=== PATIENT | male | born 1965 | race Caucasian/White ===

== ENCOUNTER 2022-08-10 14:54 | Outpatient (REF) | payer MEDICARE, MEDICAID, SELFPAY ==
--- NOTE | ~2022-08-10 | CT_ITS ---
EXAMINATION: CT CHEST SCREENING CLINICAL INFORMATION: Current smoker. 47 pack year history. COMPARISON: None. TECHNIQUE: Multidetector volumetric CT imaging of the chest is performed without contrast using low dose technique. Additional 2D coronal and sagittal reformatted images and axial 3D maximum intensity projection (MIP) images are generated on the CT workstation. This CT examination was performed using dose optimization techniques as appropriate, variously including the following: *Automated exposure control *Adjustment of mA and/or kV according to patient size (this includes techniques or standardized protocols for targeted exams where dose is matched to indication/reason for exam; i.e. extremities or head) *Use of iterative reconstruction technique DLP: 95 mGy-cm FINDINGS: LUNGS: There is evidence of emphysema. There are innumerable bilateral calcified nodules predominantly in the upper lobes, largest cluster calcified left upper lobe nodules measuring 6 mm at the left lung apex. There are innumerable groundglass attenuation areas seen in both upper lobes. Largest groundglass attenuation area measures 2.5 x 3.5 cm in the right upper lobe axial image 108 series 5. No endobronchial or endotracheal lesion. MEDIASTINUM: Upper normal-size thoracic aorta. There may be a small esophageal hernia. The mediastinum is otherwise normal. CORONARY ARTERY CALCIFICATION: Mild to moderate PLEURA: There is no pleural effusion. No pleural mass or thickening. AXILLA: No lymphadenopathy. UPPER ABDOMEN: Diverticulosis of the colon. OSSEOUS STRUCTURES: Unremarkable. CT/CT lung screening IMPRESSION: Emphysema. Innumerable calcified pulmonary nodules and groundglass attenuation areas predominantly involving the lateral upper lobes. ASSESSMENT: Lung-RADS category 3: Probably Benign RECOMMENDATION: Six-month low-dose chest CT follow-up recommended.
== END 2022-08-10 14:55 | disposition home or self-care (01) ==
LOC: HO.CT 14:54
PROVIDERS: Visit Provider Physician Assistant Medical
DX: Z12.2 Encounter for screening for malignant neoplasm of respiratory organs (principal); F17.210 Nicotine dependence, cigarettes, uncomplicated
CPT/HCPCS: 71271; G0296

== ENCOUNTER → 2022-11-06 10:15 | Outpatient (BNVA) | payer OTHER, MEDICAID, SELFPAY | PROVIDERS: PCP Family Medicine; Visit Provider Internal Medicine Pulmonary Disease | DX: J44.9 Chronic obstructive pulmonary disease, unspecified (principal) | CPT/HCPCS: 99202 ==

== ENCOUNTER 2022-11-15 12:24 | Outpatient (REF) | payer OTHER, MEDICAID, SELFPAY ==
--- NOTE | 2022-11-15 15:12 | PFT_ITS ---
FLOWS: 1. FEV1 88% of predicted at 3.96 L. 2. FVC 85% of predicted at 5.04 L. 3. FEV1 to FVC ratio 0.79. 4. No bronchodilator response. LUNG VOLUMES: 1. Total lung capacity 86% of predicted at 7.13 L. 2. Residual volume 74% of predicted at 1.90 L. 3. Slow vital capacity 92% of predicted at 5.23 L. 4. Expiratory reserve volume 66% of predicted at 1.1 L. 5. Diffusion capacity is mildly decreased, diffusion capacity corrects to normal after adjustment for alveolar ventilation. IMPRESSION: No obstructive or restrictive ventilatory defect. No bronchodilator response. Decreased expiratory reserve volume suggests extrathoracic restriction likely secondary to abdominal obesity. Decreased diffusion capacity suggests emphysema. Doroteo Barragan MD AP/MODL / [id number]
== END 2022-11-15 12:25 | disposition home or self-care (01) ==
LOC: HO.RESP 12:24
PROVIDERS: Visit Provider Internal Medicine Pulmonary Disease
DX: J44.9 Chronic obstructive pulmonary disease, unspecified (principal)
CPT/HCPCS: 94060; 94727; 94729

== ENCOUNTER → 2023-02-01 10:02 | Outpatient (BNVA) | payer MEDICARE, MEDICAID, SELFPAY | PROVIDERS: PCP Family Medicine; Visit Provider Internal Medicine Pulmonary Disease | DX: J44.9 Chronic obstructive pulmonary disease, unspecified (principal); R06.09 Other forms of dyspnea | CPT/HCPCS: 99212 ==

== ENCOUNTER 2023-04-08 09:50 | Outpatient (REF) | payer OTHER, SELFPAY ==
--- NOTE | ~2023-04-08 | CT_ITS ---
EXAMINATION: CT CHEST SCREENING CLINICAL INFORMATION: Current smoker. 40 pack year history. Follow-up groundglass attenuation area in the right upper lobe measuring 2.5 x 3.5 cm COMPARISON: Previous chest CT July 2022 TECHNIQUE: Multidetector volumetric CT imaging of the chest is performed without contrast using low dose technique. Additional 2D coronal and sagittal reformatted images and axial 3D maximum intensity projection (MIP) images are generated on the CT workstation. This CT examination was performed using dose optimization techniques as appropriate, variously including the following: *Automated exposure control *Adjustment of mA and/or kV according to patient size (this includes techniques or standardized protocols for targeted exams where dose is matched to indication/reason for exam; i.e. extremities or head) *Use of iterative reconstruction technique DLP: 94 mGy-cm FINDINGS: LUNGS: There is evidence of emphysema. There are clustered calcified coronary nodules or dominant involving the bilateral upper lobes that appear unchanged. Largest measures 6 mm at the left lung apex axial image 117 series 5. There is diffuse scattered areas of increased groundglass attenuation seen in the bilateral upper lobes. This is this is similar to previous exam as well. Small stable calcified 3 mm right lower lobe nodule axial image 390 series 5. Borderline bronchiectasis in the left lower lobe. No endobronchial or endotracheal lesion. No new pulmonary nodule. MEDIASTINUM: The mediastinum is normal. CORONARY ARTERY CALCIFICATION: Moderate PLEURA: There is no pleural effusion. No pleural mass or thickening. AXILLA: No lymphadenopathy. UPPER ABDOMEN: Unremarkable OSSEOUS STRUCTURES: Unremarkable. CT/CT lung screen follow up IMPRESSION: Emphysema. No appreciable change to the multiple small calcified pulmonary nodules and groundglass attenuation areas, greatest involvement in the upper lobes. Moderate coronary artery calcification. ASSESSMENT: Lung-RADS category 2: Benign RECOMMENDATION: Annual low-dose chest CT follow-up recommended
--- NOTE | 2023-04-08 10:15 | CA_ITS ---
Transthoracic Echocardiogram Patient (Last, First, Middle): Julian Pathak J Gender: Male Date of : 1965 Age: 57 Procedure Date: 04/08/2023 Procedure Type: Transthoracic Echocardiogram Location: OP Height: 193.04 cm Weight: 127.01 kg BSA: 2.56 m2 Heart Rate: bpm BP: 128 / 80 mmHg Assistant Director Of Admissions: Referring MD: Doroteo Barragan MD Infantry Weapons Officer: Shayne Babb MD Symptoms: R06.09 - Other forms of dyspnea Study Quality: Fair ECG Rhythm: Sinus Conclusions: - 1. Normal LV systolic function with mild LVH with impaired relaxation filling pattern 2. Normal cardiac valvular Doppler 3. Normal RV systolic pressure 4. Mildly dilated ascending aorta at 3.8 cm 5. No gross pericardial effusion Findings Procedure Information Contrast agent, definity, is being given per protocol without apparent complications. Left Ventricle Normal left ventricular size and systolic function. There is mildly increased left ventricular wall thickness. The visually estimated ejection fraction is between 55-60%. Spectral Doppler is indicative of an impaired relaxation filling pattern. E/E prime ratio is between 8 and 15 consistent with indeterminate filling pressures. Right Ventricle Normal right ventricular cavity size. Atria The left atrium was not well visualized. Interatrial shunt cannot be excluded. The right atrium was not well visualized. Aortic Valve The aortic valve was not well visualized. There is no aortic valve stenosis. There is no aortic valve regurgitation. Mitral Valve Likely normal mitral valve structure and function. There is trace mitral valve regurgitation. There is no mitral valve stenosis. Pulmonic Valve The pulmonic valve was not well visualized. Tricuspid Valve Likely normal tricuspid valve structure and function. There is trace tricuspid valve regurgitation. The right ventricular systolic pressure is normal. The right ventricular systolic pressure is 14 mmHg. Normal right atrial pressure. There is no evidence of pulmonary hypertension. Great Vessels The pulmonary artery was not well visualized. There is mild dilatation of the ascending aorta measuring 3.80 cm. Venous The inferior vena cava is normal in size and collapses greater than 50% with inspiration. Pericardium/Pleural There is no evidence of pericardial effusion. Prior Study Comparison No prior study available for comparison. Measurements 2D Linear Measurements IVSd: 1.54 0.6-0.9/0.6-1.0 cm LVIDd: 4.57 3.9-5.3/4.2-5.9 cm LVIDd Index: 1.79 2.4-3.2/2.2-3.1 cm/m2 LVIDs: 2.85 2.0-3.6 cm LVPWd: 1.53 0.7-1.1 cm Ao Root: 3.70 2.1-3.5 cm LA Diam: 3.10 2.7-3.8/3.0-4.0 cm LAIDs Index: 1.21 1.5-2.3 cm/m2 LV Mass: 364.52 67-162/88-224 g LV Mass Index: 142.39 43-95/49-115 g/m2 LVOT Diam: 2.40 3.0+(-)1.3 cm 2D Systolic Function EF 4C: 58.90 >55% EF 2C: 60.70 >55% EF BiP: 57.60 >55% Mitral Valve MV Pk E: 0.56 MV PK A: 0.92 MV Decel Time: 216.00 E/A: 0.60 E'Lateral: 7.51 E'Medial: 4.13 E/E' Med: 13.50 E/E' Lat: 7.40 PHT: 63.00 MVA PHT: 3.49 Decel [place]: 2.58 Aortic Valve AoV Pk Thanh: 1.27 AoV Mn Thanh: 0.77 AoV VTI: 0.28 AoV Pk Grad: 6.00 Aov Mn Grad: 3.00 JOSE Cont.VTI: 4.44 LVOT LVOT Pk Thanh: 1.13 LVOT Mn Thanh: 0.75 LVOT VTI: 0.28 LVOT Pk Grad: 5.00 LVOT Mn Grad: 3.00 LVOT Diam: 2.40 LVOT Area: 4.52 Diastolic Function MV Pk E: 0.56 MV Pk A: 0.92 E/A: 0.60 E'Medial: 4.13 E/E' Med: 13.50 E' Laterial: 7.51 E/E' Lat: 7.40 Right Ventricle TAPSE (mm): 29.00 TVS' Thanh: 17.00 Tricuspid Valve TR Pk Thanh: 1.65 TR Pk Grad: 11.00 RA Press: 3.00 RVSP: 14.00 Great Vessels Aorta Ao Root-2D: 3.70 2.0-3.7 cm Ao Asc: 3.80 2.1-3.4 cm Pulmonary Valve PV Pk Thanh: 0.98 Peak PV Grad: 4.00 Updated in Other Vendor System with Status of Final Shayne Babb MD electronically signed on 04/09/2023 10:46:26 AM with status of Final
== END 2023-04-08 09:51 | disposition home or self-care (01) ==
LOC: HO.CT 09:50
PROVIDERS: Absent Provider Internal Medicine Pulmonary Disease; Visit Provider Physician Assistant Medical
DX: Z12.2 Encounter for screening for malignant neoplasm of respiratory organs (principal); F17.210 Nicotine dependence, cigarettes, uncomplicated; R06.09 Other forms of dyspnea
CPT/HCPCS: 71250; 93306; Q9957

== ENCOUNTER → 2023-04-08 10:15 | Outpatient (BNV) | payer OTHER, MEDICAID, SELFPAY | PROVIDERS: Absent Provider Internal Medicine Pulmonary Disease; Visit Provider Internal Medicine Cardiovascular Disease | DX: R06.09 Other forms of dyspnea (principal) | CPT/HCPCS: 93306 ==

== ENCOUNTER 2023-04-30 10:27 | Outpatient (REF) | payer OTHER, SELFPAY ==
[2023-04-30 12:07] LABS: Estimated Average Glucose 105 mg/dL; Hemoglobin A1c % 5.3 %
[2023-04-30 12:59] LABS: TSH reflex Free T4 2.21 uIU/mL (0.32-4.0)
[2023-04-30 13:11] LABS: Vitamin B12 368 pg/mL (200-900)
[2023-05-05 11:44] LABS: Testosterone, Free 11.4 pg/mL (35.0-155.0); Testosterone, Total 74 ng/dL (250-1100)
== END 2023-04-30 10:28 | disposition home or self-care (01) ==
LOC: HO.HHCL 10:27
PROVIDERS: Visit Provider Family Medicine
DX: B20 Human immunodeficiency virus [HIV] disease (principal); R20.2 Paresthesia of skin; R53.83 Other fatigue; G62.9 Polyneuropathy, unspecified; E66.9 Obesity, unspecified
CPT/HCPCS: 36415; 82607; 83036; 84402; 84403; 84443

== ENCOUNTER 2023-05-09 11:22 | Outpatient (REF) | payer OTHER, SELFPAY ==
[2023-05-10 05:08] LABS: Follicle Stimulating Hormone 3.4 mIU/mL (1.6-8.0)
== END 2023-05-09 11:23 | disposition home or self-care (01) ==
LOC: HO.HHCL 11:22
PROVIDERS: Visit Provider Registered Nurse
DX: E34.9 Endocrine disorder, unspecified (principal)
CPT/HCPCS: 36415; 83001; 83002

== ENCOUNTER 2023-05-17 09:50 | Outpatient (AMB) | payer OTHER, SELFPAY ==
--- NOTE | 2023-05-17 10:01 | A.OFFVIS_ITS ---
Intake Vital Signs 05/17/23 10:02 Height 6 ft 4 in Weight 284 lb 6.341 oz BMI 34.6 BP 110/67 Blood Pressure Location Rt brachial Position Sitting Pulse 73 Pulse Source Doppler Pulse Oximetry (%) 94 Oxygen Delivery Method Room Air Intake Visit Reasons: COPD Allergies No Known Allergies [No Known Allergies*] Allergy (Verified 05/17/23 10:06) HPI COPD HPI Details 57-year-old gentleman, active 22 pack-year smoker followed for emphysema in dyspnea on exertion. Patient has been using Anoro and Combivent with reasonable control of his symptoms except when climbing up stairs. After the last office visit he has completed her 2D echocardiogram that showed mild diastolic dysfunction. [facility] Medical History (Updated 02/01/23 @ 10:46 by Doroteo Barragan MD) Colon polyps COPD (chronic obstructive pulmonary disease) Depression Hepatitis C HIV (human immunodeficiency virus infection) Hyperlipidemia Hypertension, essential Methadone maintenance therapy patient Nicotine dependence, cigarettes, uncomplicated Peripheral edema Surgical History (Updated 08/10/22 @ 07:50 by Lizzette Penaloza PA-C) History of colonoscopy Social History (Updated 05/17/23 @ 10:07 by CARO Tellez) Patient Tobacco Use Status: Current everyday Tobacco user Tobacco use type: Cigarette Cigarette Packs Per Day: 1 Review of Systems Const Denies daytime sleepiness, Denies excessive sweating, Denies fatigue, Denies fever(s), Denies lethargy, Denies malaise, Denies night sweats, Denies snoring and Denies weight loss Eyes Denies blurry vision and Denies itchy eyes ENT Denies nasal congestion, Denies post nasal drip, Denies sinus pain, Denies sinus pressure and Denies other ( Thrush) Card Denies chest pain, Denies pedal edema, Denies dyspnea, Reports dyspnea on exertion, Denies orthopnea and Denies paroxysmal nocturnal dyspnea Resp Denies cough, Denies hemoptysis, Denies excessive phlegm production, Denies dyspnea, Reports dyspnea on exertion, Denies snoring and Denies wheezing GI Denies abdominal pain and Denies heartburn Musc Denies myalgias, Denies arthralgias and Denies joint swelling Skin/Breast Denies rash Neuro Denies memory loss and Denies seizure-like activity Psych Denies abnormal sleep pattern, Denies anxiety and Denies memory loss Endo Denies excessive sweating, Denies fatigue and Denies heat intolerance Juan Ramon/Lymph Denies easy bruising Aller/Immun Denies itchy eyes, Denies seasonal rhinorrhea and Denies wheezing Physical Exam Vital Signs: Last Vital Signs Pulse 73 05/17/23 10:02 BP 110/67 05/17/23 10:02 Pulse Ox 94 05/17/23 10:02 Oxygen Delivery Method Room Air 05/17/23 10:02 BMI result Body Mass Index 34.6 Const General: no acute distress and alert Nutritional Appearance: not obese Orientation/consciousness: Other orientation findings ( oriented) HEENT Head: Yes atraumatic Eyes General: appearance normal, both eyes and all related structures Sclerae: sclerae normal EOM: EOMs intact bilaterally Neck Neck: Yes supple Lymphatic: no lymphadenopathy noted Resp Effort & Inspection: normal respiratory effort and no use of accessory muscles Auscultation: clear to auscultation bilaterally Cardio Rate: regular rate Rhythm: regular rhythm Heart sounds: no gallops, no murmurs and no rubs Skin General skin exam: other ( warm) Extrem General: No clubbing, No cyanosis and No edema Assessment & Plan Assessment & Plan (1) COPD (chronic obstructive pulmonary disease): Code(s): J44.9 - Chronic obstructive pulmonary disease, unspecified Plan: Reasonably well controlled on Anoro and Combivent. Continue current regimen. (2) Dyspnea on exertion: Code(s): R06.09 - Other forms of dyspnea Plan: Appears to have combined pulmonary/cardiac etiology to his symptoms. Will obtain stress test to evaluate cardiac contribution. Orders: Orders CA dobutamine stress echo Today J44.9 - Chronic obstructive pulmonary disease, unspecified, R06.09 - Other forms of dyspnea Coding Level of Care Code Est Pt Level 4 (66008) Diagnoses COPD (chronic obstructive pulmonary disease) J44.9 Dyspnea on exertion R06.09
[2023-05-17 10:02] VITALS: BP 110/67; PULSE 73; O2SAT 94; BMI 34.6
== END 2023-05-17 10:20 | disposition home or self-care (01) ==
PROVIDERS: Visit Provider Internal Medicine Pulmonary Disease
DX: J44.9 Chronic obstructive pulmonary disease, unspecified (principal); R06.09 Other forms of dyspnea
CPT/HCPCS: 99214

== ENCOUNTER → 2023-05-17 09:50 | Outpatient (BNVA) | payer OTHER, SELFPAY | PROVIDERS: Visit Provider Internal Medicine Pulmonary Disease | DX: J43.8 Other emphysema (principal); R06.09 Other forms of dyspnea; B20 Human immunodeficiency virus [HIV] disease; F17.210 Nicotine dependence, cigarettes, uncomplicated; Z79.891 Long term (current) use of opiate analgesic | CPT/HCPCS: 99212 ==

== ENCOUNTER → 2023-06-13 09:41 | Outpatient (REF) | payer OTHER, SELFPAY ==
--- NOTE | 2023-06-13 09:53 | CA_ITS ---
Acquisition Time: 2023-06-13 10:42:12 Total Exercise Time: 00:15:00 Test Indications: Screening for CAD Medications: AMLODIPINE ANORO ELLIPTA GABAPENTIN ROSUVASTATIN Protocol: DOBUTAMINE Max HR: 162 BPM 100% of Pred: 162 BPM Max BP: 184/050 mmHG Max Work Load: 1.0 METS Pharnacological stress test with Dobutamine infusion to max of 30 mcg/kg/min, achieivng greater than 85% MPHR, with short atrial runs, no anginal symptoms, with normotensive response to infusion, with borderline ST changes. Echo images obtained by Pulsant at rest, at 20 mcg/kg/min and 30 mcg/kg/min, Definity contrast used. Test reviewed with Dr. Church. Referred By: Doroteo Barragan Overread By: Belinda Rene
== END ==
LOC: HO.CARD 09:41
PROVIDERS: Visit Provider Internal Medicine Pulmonary Disease
DX: R06.09 Other forms of dyspnea (principal); J44.9 Chronic obstructive pulmonary disease, unspecified
CPT/HCPCS: 93351; J0461; J1250; Q9957

== ENCOUNTER 2023-06-21 10:13 | Outpatient (AMB) | payer OTHER, SELFPAY ==
--- NOTE | 2023-06-21 10:18 | A.OFFVIS_ITS ---
Intake Vital Signs 06/21/23 10:19 Height 6 ft 4 in Weight 293 lb 3.437 oz BMI 35.7 BP 128/77 Blood Pressure Location Rt brachial Position Sitting Pulse 75 Pulse Source Doppler Pulse Oximetry (%) 95 Oxygen Delivery Method Room Air Intake Visit Reasons: COPD Allergies No Known Allergies [No Known Allergies*] Allergy (Verified 06/21/23 10:20) HPI COPD HPI Details 57-year-old gentleman, active 22 pack-ye ar smoker followed for emphysema in dyspnea on exertion. Patient has been using Anoro and Combivent with reasonable control of his symptoms except when climbing upstairs. After the last office visit he has completed his cardiac dobuamine stress test that showed no evidence of ischemia. He does continue to complain of lower extremity edema. [facility] Medical History (Updated 06/21/23 @ 10:54 by Doroteo Barragan MD) Methadone maintenance therapy patient Colon polyps Depression Peripheral edema COPD (chronic obstructive pulmonary disease) Hyperlipidemia Hypertension, essential Hepatitis C HIV (human immunodeficiency virus infection) Nicotine dependence, cigarettes, uncomplicated Surgical History (Updated 08/10/22 @ 07:50 by Lizzette Penaloza PA-C) History of colonoscopy Social History Patient Tobacco Use Status: Current everyday Tobacco user Tobacco use type: Cigarette Cigarette Packs Per Day: 1 Review of Systems Const Denies daytime sleepiness, Denies excessive sweating, Denies fatigue, Denies fever(s), Denies lethargy, Denies malaise, Denies night sweats, Denies snoring and Denies weight loss Eyes Denies blurry vision and Denies itchy eyes ENT Denies nasal congestion, Denies post nasal drip, Denies sinus pain, Denies sinus pressure and Denies other ( Thrush) Card Denies chest pain, Reports pedal edema, Denies dyspnea, Denies orthopnea and Denies paroxysmal nocturnal dyspnea Resp Denies cough, Denies hemoptysis, Denies excessive phlegm production, Denies dyspnea, Denies snoring and Denies wheezing GI Denies abdominal pain and Denies heartburn Musc Denies myalgias, Denies arthralgias and Denies joint swelling Skin/Breast Denies rash Neuro Denies memory loss and Denies seizure-like activity Psych Denies abnormal sleep pattern, Denies anxiety and Denies memory loss Endo Denies excessive sweating, Denies fatigue and Denies heat intolerance Juan Ramon/Lymph Denies easy bruising Aller/Immun Denies itchy eyes, Denies seasonal rhinorrhea and Denies wheezing Physical Exam Vital Signs: Last Vital Signs Pulse 75 06/21/23 10:19 BP 128/77 06/21/23 10:19 Pulse Ox 95 06/21/23 10:19 Oxygen Delivery Method Room Air 06/21/23 10:19 BMI result Body Mass Index 35.7 Const General: no acute distress and alert Nutritional Appearance: not obese Orientation/consciousness: Other orientation findings ( oriented) HEENT Head: Yes atraumatic Eyes General: appearance normal, both eyes and all related structures Sclerae: sclerae normal EOM: EOMs intact bilaterally Neck Neck: Yes supple Lymphatic: no lymphadenopathy noted Resp Effort & Inspection: normal respiratory effort and no use of accessory muscles Auscultation: clear to auscultation bilaterally Cardio Rate: regular rate Rhythm: regular rhythm Heart sounds: no gallops, no murmurs and no rubs Skin General skin exam: other ( warm) Extrem General: No clubbing, No cyanosis and Yes edema (1+ bilateral) Assessment & Plan Assessment & Plan (1) COPD (chronic obstructive pulmonary disease): Code(s): J44.9 - Chronic obstructive pulmonary disease, unspecified Plan: Control on current regimen of Anoro and Combivent. Continue current regimen. (2) Lower extremity edema: Code(s): R60.0 - Localized edema Plan: Results of 2D echo and dobutamine stress test reviewed and essentially normal. Lower extremity edema at this time appears to be related to use of amlodipine. Suggest switching to a different class of antihypertensive agents. Coding Level of Care Code Est Pt Level 4 (30839) Diagnoses COPD (chronic obstructive pulmonary disease) J44.9 Lower extremity edema R60.0
[2023-06-21 10:19] VITALS: BP 128/77; PULSE 75; O2SAT 95; BMI 35.7
== END 2023-06-21 10:40 | disposition home or self-care (01) ==
PROVIDERS: Visit Provider Internal Medicine Pulmonary Disease
DX: J44.9 Chronic obstructive pulmonary disease, unspecified (principal); R60.0 Localized edema
CPT/HCPCS: 99214

== ENCOUNTER → 2023-06-21 10:13 | Outpatient (BNVA) | payer OTHER, SELFPAY | PROVIDERS: Visit Provider Internal Medicine Pulmonary Disease | DX: J44.9 Chronic obstructive pulmonary disease, unspecified (principal); R60.0 Localized edema | CPT/HCPCS: 99212 ==

== ENCOUNTER 2023-09-30 10:26 | Outpatient (REF) | payer OTHER, SELFPAY ==
[2023-10-01 11:49] LABS: Absolute CD3 Count 894 cells/uL (840-3060); Absolute CD4 Count 408 cells/uL (490-1740); Absolute CD8 Count 448 cells/uL (180-1170); Absolute Lymphocytes 1669 cells/uL (850-3900); CD4 CD8 Ratio 0.91 (0.86-5.00); Percent CD3 Cells 54 % (57-85); Percent CD4 Cells 24 % (30-61); Percent CD8 Cells 27 % (12-42)
[2023-10-03 13:44] LABS: HIV RNA PCR Qn Copies NOT DETECTED copies/mL (NOT DETECTED); HIV RNA PCR Qn Log Copies NOT DETECTED (NOT DETECTED)
== END 2023-09-30 10:27 | disposition home or self-care (01) ==
LOC: HO.HHCL 10:26
PROVIDERS: Visit Provider Student in an Organized Health Care Education/Training Program
DX: B20 Human immunodeficiency virus [HIV] disease (principal)
CPT/HCPCS: 36415; 80053; 85025; 86359; 86360; 87536

== ENCOUNTER 2023-11-25 10:11 | Outpatient (REF) | payer MEDICARE, SELFPAY ==
[2023-11-25 11:59] LABS: Alanine Aminotransferase 20 U/L (0-40); Albumin Level 4.3 g/dL (3.5-5.0); Alkaline Phosphatase 89 U/L (39-117); Anion Gap 10 (12-20); Aspartate Amino Transferase 19 U/L (5-37); Bilirubin Total 0.4 mg/dL (0.0-1.0); Blood Urea Nitrogen 14 mg/dL (9-16); Calcium 9.5 mg/dL (8.4-10.2); Carbon Dioxide 29 mmol/L (22-29); Chloride 101 mmol/L (96-108); Estimated Glomerular Filt Rate > 60; Glucose Random 103 mg/dL (60-115); Potassium 3.1 mmol/L (3.3-5.1); Sodium 137 mmol/L (135-145)
[2023-11-25 12:47] LABS: B Type Natriuretic Peptide < 10 pg/mL (<100)
== END 2023-11-25 10:12 | disposition home or self-care (01) ==
LOC: HO.HHCL 10:11
PROVIDERS: Visit Provider General Practice
DX: M79.89 Other specified soft tissue disorders (principal)
CPT/HCPCS: 36415; 80053; 83880

== ENCOUNTER 2023-12-03 14:25 | Outpatient (REF) | payer MEDICARE, SELFPAY ==
--- NOTE | ~2023-12-03 | US_ITS ---
EXAMINATION: US SCROTUM CLINICAL INFORMATION: Left testicular swelling x6 months. COMPARISON: None available. TECHNIQUE: A sonogram of the scrotum was performed assessing connors-scale appearance and color Doppler flow. Spectral Doppler analysis of the arterial and venous flow were performed in the testes bilaterally. FINDINGS: RIGHT: Right testicle measures 5.5 x 2.3 x 3.6 cm, volume 24.2 mL. No focal testicular parenchymal lesions are visualized. Spectral Doppler analysis of the arterial and venous flow is normal in the right testis. Right epididymal head is normal in size. No right varicocele is seen. Right hydrocele with volume approximately 26 mL. Right epididymal Doppler flow is normal. LEFT: Left testicle measures 4.6 x 2.7 x 3.9 cm, volume 24.7 mL. No focal testicular parenchymal lesions are visualized. Spectral Doppler analysis of the arterial and venous flow is normal in the left testis. Left epididymal head is normal in size. No left varicocele is seen. Left hydrocele with volume approximately 104 mL. Left epididymal Doppler flow is normal. US/US scrotum IMPRESSION: Bilateral hydroceles, left greater than right.
== END 2023-12-03 14:26 | disposition home or self-care (01) ==
LOC: HO.US 14:25
PROVIDERS: PCP General Practice; Visit Provider General Practice
DX: N50.89 Other specified disorders of the male genital organs (principal)
CPT/HCPCS: 76870

== ENCOUNTER 2024-01-03 09:59 | Outpatient (AMB) | payer MEDICARE, SELFPAY ==
[2024-01-03 10:02] VITALS: BP 118/67; PULSE 71; O2SAT 94; BMI 35.7
--- NOTE | 2024-01-03 10:02 | MHC.OFFVIS ---
Intake Vital Signs 01/03/24 10:02 Height 6 ft 4 in Weight 293 lb BMI 35.7 BP 118/67 Blood Pressure Location Rt brachial Position Sitting Pulse 71 Pulse Source Doppler Pulse Oximetry (%) 94 Intake Visit Reasons: COPD Allergies No Known Allergies [No Known Allergies*] Allergy (Verified 01/03/24 10:07) HPI COPD HPI Details 58-year-old gentleman, active 22 pack-year smoker followed for emphysema in dyspnea on exertion. Patient has been using Anoro and Combivent with reasonable control of his symptoms except when climbing upstairs. His cardiac dobuamine stress test that showed no evidence of ischemia. He does continue to complain of worsening lower extremity edema despite switching off amlodipine. [facility] Medical History (Updated 06/21/23 @ 10:54 by Doroteo Barragan MD) Methadone maintenance therapy patient Colon polyps Depression Peripheral edema COPD (chronic obstructive pulmonary disease) Hyperlipidemia Hypertension, essential Hepatitis C HIV (human immunodeficiency virus infection) Nicotine dependence, cigarettes, uncomplicated Surgical History (Updated 08/10/22 @ 07:50 by Lizzette Penaloza PA-C) History of colonoscopy Social History Patient Tobacco Use Status: Current everyday Tobacco user Tobacco use type: Cigarette Cigarette Packs Per Day: 1 Review of Systems Const Denies daytime sleepiness, Denies excessive sweating, Denies fatigue, Denies fever(s), Denies lethargy, Denies malaise, Denies night sweats, Denies snoring and Denies weight loss Eyes Denies blurry vision and Denies itchy eyes ENT Denies nasal congestion, Denies post nasal drip, Denies sinus pain, Denies sinus pressure and Denies other ( Thrush) Card Denies chest pain, Reports pedal edema, Denies dyspnea, Reports dyspnea on exertion, Denies orthopnea and Denies paroxysmal nocturnal dyspnea Resp Denies cough, Denies hemoptysis, Denies excessive phlegm production, Denies dyspnea, Reports dyspnea on exertion, Denies snoring and Denies wheezing GI Denies abdominal pain and Denies heartburn Musc Denies myalgias, Denies arthralgias and Denies joint swelling Skin/Breast Denies rash Neuro Denies memory loss and Denies seizure-like activity Psych Denies abnormal sleep pattern, Denies anxiety and Denies memory loss Endo Denies excessive sweating, Denies fatigue and Denies heat intolerance Juan Ramon/Lymph Denies easy bruising Aller/Immun Denies itchy eyes, Denies seasonal rhinorrhea and Denies wheezing Physical Exam Vital Signs: Last Vital Signs Pulse 71 01/03/24 10:02 BP 118/67 01/03/24 10:02 Pulse Ox 94 01/03/24 10:02 BMI result Body Mass Index 35.7 Const General: no acute distress and alert Nutritional Appearance: not obese Orientation/consciousness: Other orientation findings ( oriented) HEENT Head: Yes atraumatic Eyes General: appearance normal, both eyes and all related structures Sclerae: sclerae normal EOM: EOMs intact bilaterally Neck Neck: Yes supple Lymphatic: no lymphadenopathy noted Resp Effort & Inspection: normal respiratory effort and no use of accessory muscles Auscultation: clear to auscultation bilaterally Cardio Rate: regular rate Rhythm: regular rhythm Heart sounds: no gallops, no murmurs and no rubs Skin General skin exam: other ( warm) Extrem General: No clubbing, No cyanosis and Yes edema (2+ to the knees) Assessment & Plan Assessment & Plan (1) COPD (chronic obstructive pulmonary disease): Code(s): J44.9 - Chronic obstructive pulmonary disease, unspecified (2) Lower extremity edema: Code(s): R60.0 - Localized edema (3) Dyspnea on exertion: Code(s): R06.09 - Other forms of dyspnea (4) Nicotine dependence, cigarettes, uncomplicated: Comment: (Current smoker, onset 18yo, 1ppd x 39yrs, 35pyh) Code(s): F17.210 - Nicotine dependence, cigarettes, uncomplicated Plan Pulmonary component of dyspnea well controlled on current regimen of Anoro and Combivent. Continue current regimen. Will continue with lung cancer screening, next in March of 2024. Worsening lower extremity edema, now up to knees with dyspnea on exertion despite switching from amlodipine. Will start on empiric Bumex and potassium supplementation. Medications: New potassium chloride 20 mEq PO DAILY 7 ea 0RF bumetanide 1 mg PO DAILY 30 days 30 tabs 6RF bumetanide 1 mg PO DAILY 30 days 7 tabs 0RF Coding Level of Care Code Est Pt Level 5 (17123) Diagnoses COPD (chronic obstructive pulmonary disease) J44.9 Lower extremity edema R60.0 Dyspnea on exertion R06.09 Nicotine dependence, cigarettes, uncomplicated F17.210
== END 2024-01-03 10:18 | disposition home or self-care (01) ==
PROVIDERS: PCP General Practice; Visit Provider Internal Medicine Pulmonary Disease
DX: J44.9 Chronic obstructive pulmonary disease, unspecified (principal); F17.210 Nicotine dependence, cigarettes, uncomplicated; R60.0 Localized edema
CPT/HCPCS: 99214

== ENCOUNTER → 2024-01-03 09:59 | Outpatient (BNVA) | payer MEDICARE, SELFPAY | PROVIDERS: PCP General Practice; Visit Provider Internal Medicine Pulmonary Disease | DX: J44.9 Chronic obstructive pulmonary disease, unspecified (principal); R60.0 Localized edema; R06.09 Other forms of dyspnea; F17.210 Nicotine dependence, cigarettes, uncomplicated | CPT/HCPCS: 99212 ==

== ENCOUNTER 2024-02-25 11:25 | Outpatient (REF) | payer MEDICARE, SELFPAY ==
[2024-02-25 13:23] LABS: MANUAL DIFF FLAG NO
[2024-02-25 13:35] LABS: Basophils Percent Auto 0.4 % (0-2); Eosinophils Absolute Auto 0.3 X10*3/uL (0.0-0.4); Eosinophils Percent Auto 3.5 % (0-4); Hematocrit 43.8 % (42.0-52.0); Hemoglobin 15.1 g/dl (14.0-18.0); Imm Gran Abs Auto 0.04 X10*3/uL (0.00-0.03); Imm Gran Pct Auto 0.6 % (0.0-0.4); Lymphocytes Absolute Auto 1.8 X10*3/uL (1.2-4.9); Mean Corpuscular HGB Conc 34.5 g/dl (31.0-36.0); Mean Corpuscular Hemoglobin 32.9 pg (27.0-33.0); Mean Corpuscular Volume 95.4 fL (80.0-98.0); Mean Platelet Volume 11.6 fL (9.4-12.4); Monocytes Absolute Auto 0.9 X10*3/uL (0.1-1.2); Monocytes Percent Auto 12.3 % (2-11); Neutrophils Absolute Auto 4.2 x10*3/uL (2.0-8.3); Neutrophils Percent Auto 58.2 % (45-73); Platelet Count 179 X10*3/uL (160-400); Red Blood Count 4.59 X10*6/uL (4.60-5.80); Red Cell Distribution Width 15.1 % (11.0-16.0); White Blood Count 7.2 X10*3/uL (4.8-10.8)
[2024-02-25 14:13] LABS: Alanine Aminotransferase 18 U/L (0-40); Alkaline Phosphatase 84 U/L (39-117); Anion Gap 14 (12-20); Aspartate Amino Transferase 23 U/L (5-37); Bilirubin Total 0.3 mg/dL (0.0-1.0); Blood Urea Nitrogen 12 mg/dL (9-16); Calcium 9.8 mg/dL (8.4-10.2); Carbon Dioxide 29 mmol/L (22-29); Chloride 100 mmol/L (96-108); Estimated Glomerular Filt Rate > 60; Glucose Random 81 mg/dL (60-115); Potassium 3.8 mmol/L (3.3-5.1); Sodium 139 mmol/L (135-145); Total Protein 7.8 g/dL (6.5-8.0)
[2024-02-26 12:34] LABS: Absolute CD4 Count 439 cells/uL (490-1740); Absolute CD8 Count 482 cells/uL (180-1170); Absolute Lymphocytes 1849 cells/uL (850-3900); CD4 CD8 Ratio 0.91 (0.86-5.00); Percent CD4 Cells 24 % (30-61); Percent CD8 Cells 26 % (12-42)
[2024-02-27 14:23] LABS: HIV RNA PCR Qn Copies NOT DETECTED copies/mL (NOT DETECTED); HIV RNA PCR Qn Log Copies NOT DETECTED (NOT DETECTED)
== END 2024-02-25 11:26 | disposition home or self-care (01) ==
LOC: HO.HHCL 11:25
PROVIDERS: Visit Provider General Practice
DX: B20 Human immunodeficiency virus [HIV] disease (principal)
CPT/HCPCS: 36415; 80053; 85025; 86360; 87536

== ENCOUNTER 2024-04-22 07:34 | Outpatient (REF) | payer MEDICARE, SELFPAY ==
--- NOTE | ~2024-04-22 | US_ITS ---
EXAMINATION: US COMPLETE ABDOMEN WITH LIVER ELASTOGRAPHY CLINICAL INFORMATION: Chronic hepatitis; abnormal liver function tests. COMPARISON: CT abdomen and pelvis dated 11/04/2015 TECHNIQUE: Real-time imaging of the abdominal viscera. Noninvasive ultrasound liver fibrosis assessment is performed using Myrna ElastPQ point quantification shear wave elastography (pSWE) with a C5-2 MHz transducer. Multiple elastography samples are obtained. Imaging is significantly limited by body habitus. FINDINGS: PANCREAS: Normal. The visualized pancreatic head and body are normal in appearance. The remainder of the pancreas is obscured from visualization by the overlying bowel gas. ABDOMINAL AORTA: The proximal, middle, and distal aortic segments are normal in caliber. INFERIOR VENA CAVA: Visualized portions are normal. LIVER: The liver is enlarged and shows normal contour and increased echogenicity. No focal lesion or intrahepatic biliary duct dilatation. The right lobe measures 20.7 cm in length. The left lobe measures 13.6 cm in length. Portal flow is towards the liver (hepatopetal). Shear wave liver elastography median stiffness is 1.43 m/s (reference: normal median stiffness is 1.3 m/s or less). IQR/median stiffness to assess sampling precision is 0.24 (reference: good quality data set is IQR/median stiffness of 0.15 or less). GALLBLADDER: There is layering biliary sludge. This gallbladder wall thickening to 5 mm up. Trace pericholecystic free fluid is suspected. COMMON BILE DUCT: Normal in caliber measuring 1.0 cm in diameter. RIGHT KIDNEY: Normal. No hydronephrosis. No renal calculi or focal parenchymal lesions. The kidney measures 12.4 cm in maximum dimension. LEFT KIDNEY: Normal. No hydronephrosis. No renal calculi or focal parenchymal lesions. The kidney measures 12.0 cm in maximum dimension. SPLEEN: Normal. The spleen measures 11.7 cm in maximum dimension. FREE FLUID: None. US/US abdomen comp w elastography IMPRESSION: 1. There is generalized increase in hepatic echotexture, consistent with fatty infiltration or hepatocellular disease. Please correlate clinically. No focal hepatic mass or intrahepatic biliary dilatation is seen. 2. There is hepatomegaly. 3. Liver elastography: Although measurements appear to rule out compensated advanced chronic liver disease, there is statistical variability of the sampling which decreases accuracy. 4. There is biliary sludge, gallbladder wall thickening, and trace pericholecystic free fluid is suspected. The findings are consistent with cholecystitis, possibly acute. There is currently clinically. 5. There is common bile duct enlargement to 1.0 cm, without focal choledocholithiasis seen. This could be more fully evaluated with abdominal MRI/MRCP or CT, if clinically indicated. REFERENCE: Society of Radiologists in Ultrasound Liver Stiffness Thresholds (2020): LIVER STIFFNESS THRESHOLDS: *Liver Stiffness equal or less than 1.3 m/s: High probability of being normal. *Liver Stiffness less than 1.7 m/s: In the absence of other known clinical signs, rules out compensated advanced chronic liver disease. *Liver Stiffness 1.7-2.1 m/s: Suggestive of compensated advanced chronic liver disease but need further test for confirmation. *Liver Stiffness over 2.1 m/s: Rules in compensated advanced chronic liver disease. *Liver Stiffness over 2.4 m/s: Suggestive of clinically significant portal hypertension. QUALITY OF DATA SET: *IQR/Median value equal or less than 0.15 implies a quality data set. *IQR/Median value over 0.15 implies a poor quality data set. SIGNIFICANT CHANGE FROM PRIOR EXAM: Significant change if liver stiffness measurement is 10% or greater from prior exam. OTHER CONSIDERATIONS: The stage of liver fibrosis may be overestimated in the setting of acute hepatitis, liver inflammation, elevated liver function tests, hepatic vascular congestion, obstructive cholestasis, non-fasting state, and infiltrative diseases such as amyloidosis and lymphoma. In some patients with NAFLD, the liver stiffness thresholds for compensated advanced chronic liver disease may be lower. In causes other than viral hepatitis and NAFLD, liver stiffness thresholds are not well established. Electronically signed by: Baldemar Nassar MD 05/18/2024 10:23 AM EDT
== END 2024-04-22 07:35 | disposition home or self-care (01) ==
LOC: HO.US 07:34
PROVIDERS: PCP General Practice; Visit Provider Student in an Organized Health Care Education/Training Program
DX: K73.9 Chronic hepatitis, unspecified (principal); R60.0 Localized edema; R79.89 Other specified abnormal findings of blood chemistry
CPT/HCPCS: 76700; 76981

== ENCOUNTER 2024-04-30 12:48 | Outpatient (RCR) | payer MEDICARE, SELFPAY | END 2024-05-20 10:36 | disposition home or self-care (01) | LOC: HO.WCC 12:48 | PROVIDERS: PCP General Practice; Visit Provider Surgery | DX: S91.312A Laceration without foreign body, left foot, initial encounter (principal); G62.9 Polyneuropathy, unspecified; I10 Essential (primary) hypertension; B20 Human immunodeficiency virus [HIV] disease; F17.210 Nicotine dependence, cigarettes, uncomplicated; X58.XXXA Exposure to other specified factors, initial encounter; Y93.9 Activity, unspecified; Y92.9 Unspecified place or not applicable; Y99.9 Unspecified external cause status; Z79.899 Other long term (current) drug therapy | CPT/HCPCS: 11042; 99212 ==

== ENCOUNTER 2024-05-04 08:47 | Outpatient (AMB) | payer MEDICARE, SELFPAY ==
--- NOTE | 2024-05-04 08:55 | MHC.OFFVIS ---
Intake Visit Reasons: hydrocele/ ED Intake Note: New Patient presents for initial visit for hydrocele and erectile dysfunction Urology Medications: none. previously treated with Viagra. Blood Thinner: none Special Events Assistant Required: No Accompanied by: Self / Same As Patient Allergies No Known Allergies [No Known Allergies*] Allergy (Verified 05/04/24 10:10) Medication List - Last Reconciled 05/04/24 by HARMAN Lacey- cfcauylti-doakdaid-fciqxbq ala 50-200-25 mg (Biktarvy) ea PO blood pressure test kit-large As directed bumetanide 1 mg PO DAILY 30 days chlorhexidine gluconate 0.12% mL PO gabapentin 100 mg PO ibuprofen 800 mg PO ipratropium-albuterol 20-100 mcg/actuation (Combivent Respimat) grams inhalation naloxone 4 mg/actuation ea intranasal rosuvastatin 20 mg PO umeclidinium-vilanterol 62.5-25 mcg/actuation (Anoro Ellipta) 1 ea PO DAILY HPI Comments Details: Julian is a 58-year-old male patient of Dr. White. He has a past medical history of depression, peripheral edema, COPD, hyperlipidemia, hypertension, hepatitis-C, HIV, and nicotine dependence. He presents to the office today as a new patient for large left hydrocele as well as erectile dysfunction. In discussion with the patient today he reports noting over the last 4 months that his left testicle was getting bigger than his right. He reports having followed up with his PCP at which time a scrotal ultrasound was ordered and performed. These results were reviewed with the patient today. Bilateral hydroceles left greater than right. In assessment of the patient today the penis is circumcised moderate to large left hydrocele noted otherwise no open areas, lesions, or drainage noted. Discussed at length potential causes of hydroceles as well as further treatment options to include surveillance monitoring verses in office drainage verses surgical intervention. Risks and benefits of these interventions were discussed. Patient also discusses longstanding history of erectile dysfunction over the last 3-5 years. He reports previously trialing Viagra p.r.n. and felt this was somewhat helpful and would like to continue. Discussed at length potential causes of erectile dysfunction. When asked he also reports urinary frequency however relates this to his diuretic medication. He otherwise denies incontinence, nocturia, hematuria, dysuria, foul smelling urine, changes to urinary stream, flank pain, fever, and or chills. In office urinalysis results reviewed with the patient today. He otherwise offers no other issues or concerns at this time. [facility] Medical History Methadone maintenance therapy patient Colon polyps Depression Peripheral edema COPD (chronic obstructive pulmonary disease) Hyperlipidemia Hypertension, essential Hepatitis C HIV (human immunodeficiency virus infection) Nicotine dependence, cigarettes, uncomplicated Surgical History History of colonoscopy Social History Patient Tobacco Use Status: Current everyday Tobacco user Tobacco use type: Cigarette Cigarette Packs Per Day: 1 Review of Systems Eyes Reports no additional complaints ENT Reports no additional complaints Card Reports as per HPI Resp Reports as per HPI GI Reports no additional complaints Reports as per HPI Musc Reports no additional complaints Neuro Reports as per HPI Psych Reports as per HPI Endo Reports no additional complaints Juan Ramon/Lymph Reports as per HPI Aller/Immun Reports no additional complaints Physical Exam Const General: cooperative, comfortable, no acute distress, well developed, alert and awake Orientation/consciousness: patient oriented x3 Limitations: no limitations HEENT Head: Yes normal to inspection, Yes normocephalic and Yes atraumatic Ears: hearing grossly normal bilaterally Eyes General: appearance normal, both eyes and all related structures Neck Neck: Yes normal visual inspection and Yes trachea midline Chest Chest palpation & inspection: normal inspection of the chest Resp Effort & Inspection: normal respiratory effort and able to speak in complete sentences Cardio Rate: regular rate GI Inspection: Yes normal to inspection General: Yes no CVA tenderness Back/Spine/Pelvis Back: no CVA tenderness Skin General skin exam: no rashes or lesions noted Neuro General: patient oriented x3 Extrem General: Yes normal to inspection Psych Appearance: grossly normal and well kempt Mental Status: mental status grossly normal Speech and movement: Normal speech and movement present and Clear speech present Affect: normal affect Attitude: cooperative Thought process: Normal thought process present Thought content: Normal thought content present Insight: Fair insight present (Psych) Judgement: Fair judgement present (Psych) Results AMB Urinalysis, Automated UA Leukoctes 0 Cady/uL Last Edit by Brynn Martínez on 05/04/24 09:22 UA Nitrite Last Edit by Brynn Martínez on 05/04/24 09:22 UA Urobilinogen 0.2 mg/dL Last Edit by Brynn Martínez on 05/04/24 09:22 UA Protein 15 mg/dL Last Edit by Brynn Martínez on 05/04/24 09:22 UA pH 6.0 Last Edit by Brynn Angelicabernabe on 05/04/24 09:22 UA Blood 0 Robe/uL Last Edit by Brynn Martínez on 05/04/24 09:22 UA Specific [place] 1.015 Last Edit by Brynn Martínez on 05/04/24 09:22 UA Ketone Last Edit by Brynn Martínez on 05/04/24 09:22 UA Bilirubin 0 mg/dL Last Edit by Brynn Martínez on 05/04/24 09:22 UA Glucose 0 mg/dL Last Edit by Brynn Martínez on 05/04/24 09:22 Results Reviewed Results Reviewed: Laboratory Last Values Urine pH (Auto) 6.0 05/04/24 09:21 Specific [place] (Auto) 1.015 05/04/24 09:21 Urine Protein (Auto) 15 mg/dL 05/04/24 09:21 Glucose (UA)(Auto) 0 mg/dL 05/04/24 09:21 Urine Blood (Auto) 0 Robe/uL 05/04/24 09:21 Urine Bilirubin (Auto) 0 mg/dL 05/04/24 09:21 Urine Urobilinogen (Auto) 0.2 mg/dL 05/04/24 09:21 Leukocyte Esterase (Auto) 0 Cady/uL 05/04/24 09:21 Date of Service: 12/03/23 EXAMINATION: US SCROTUM FINDINGS: RIGHT: Right testicle measures 5.5 x 2.3 x 3.6 cm, volume 24.2 mL. No focal testicular parenchymal lesions are visualized. Spectral Doppler analysis of the arterial and venous flow is normal in the right testis. Right epididymal head is normal in size. No right varicocele is seen. Right hydrocele with volume approximately 26 mL. Right epididymal Doppler flow is normal. LEFT: Left testicle measures 4.6 x 2.7 x 3.9 cm, volume 24.7 mL. No focal testicular parenchymal lesions are visualized. Spectral Doppler analysis of the arterial and venous flow is normal in the left testis. Left epididymal head is normal in size. No left varicocele is seen. Left hydrocele with volume approximately 104 mL. Left epididymal Doppler flow is normal. IMPRESSION: Bilateral hydroceles, left greater than right. Assessment & Plan Assessment & Plan (1) Erectile dysfunction: Code(s): N52.9 - Male erectile dysfunction, unspecified Category: Medical (2) Hydrocele: Code(s): N43.3 - Hydrocele, unspecified Category: Medical (3) Urinary frequency: Code(s): R35.0 - Frequency of micturition Category: Medical Plan In office urinalysis results reviewed with the patient today; as noted above. Discussed at length potential causes for hydroceles as well as erectile dysfunction Discussed further treatment options for hydroceles to include surveillance monitoring verses in office drainage verses surgical intervention; risks and benefits of these interventions were discussed. Will continue with surveillance monitoring of hydrocele at this time per patient request. Discussed further treatment options for erectile dysfunction Prescription provided for p.r.n. Viagra Will obtain PSA and testosterone for further assessment evaluation. Patient does report urinary frequency however relates this to his diuretic and does not feel urinary frequency is bothersome. He reports be happy with current voiding parameters. Discussed lifestyle modifications to assist with ED. Follow-up in 1-3 months with labs to be completed prior; or sooner with any issues, concerns, and or questions Orders: Orders AMB Urinalysis Automated Today Z13.9 - Encounter for screening, unspecified Prostate Specific Antigen Today N52.9 - Male erectile dysfunction, unspecified Testosterone, Free/Total Today N52.9 - Male erectile dysfunction, unspecified Medications: New sildenafil (Viagra) administer 30 minutes to 4 hours before activity. [id number] [facility] [id number] Member [id number] 100 mg PO DAILY 90 days PRN 30 tabs 1RF sexual activity Patient Instructions: The patient had an opportunity to ask questions regarding the treatment plan. All questions were answered. Physical exam, labs, and imaging were discussed and reviewed in detail. As well as risks, benefits, and discussion of treatment choices. No major barriers to understanding were identified. The patient expressed understanding and agreement with the above treatment plan. The patient was made aware they should contact our office by phone for worsening of their current condition, the appearance of new symptoms, or with any questions or concerns. Compliance is encouraged with any medications and follow up testing that is ordered. It is a privilege to be allowed the opportunity to participate in? your urological care.? Again, if you have any questions or concerns If you have any questions or concerns please do not hesitate to contact me. The office is [phone]. This note is constructed using voice recognition software. While every effort has been made to ensure accuracy rn community health errors may have been included. Yours sincerely, NAS Lacey Coding Level of Care Code New Pt Level 4 (05974) Diagnoses Erectile dysfunction N52.9 Hydrocele N43.3 Urinary frequency R35.0
== END 2024-05-04 09:42 | disposition home or self-care (01) ==
PROVIDERS: PCP General Practice; Visit Provider Nurse Practitioner Family
DX: N52.9 Male erectile dysfunction, unspecified (principal); N43.3 Hydrocele, unspecified; R35.0 Frequency of micturition; Z13.9 Encounter for screening, unspecified
CPT/HCPCS: 99204

== ENCOUNTER → 2024-05-04 08:47 | Outpatient (BNVA) | payer MEDICARE, SELFPAY | PROVIDERS: PCP General Practice; Visit Provider Nurse Practitioner Family | DX: N43.3 Hydrocele, unspecified (principal); N52.9 Male erectile dysfunction, unspecified; R35.0 Frequency of micturition | CPT/HCPCS: 81003; 99202 ==

== ENCOUNTER 2024-05-26 09:15 | Outpatient (REF) | payer MEDICARE, SELFPAY ==
--- NOTE | ~2024-05-26 | CT_ITS ---
EXAMINATION: CT ABDOMEN AND PELVIS WITH CONTRAST CLINICAL INFORMATION: Abdominal pain. Gallbladder wall thickening on ultrasound COMPARISON: Prior ultrasound of the abdomen dated 04/22/2024 TECHNIQUE: Multidetector volumetric images were obtained from the superior aspect of the liver through the pubic symphysis following administration 85 mL of Omnipaque 350 intravenous contrast. Sagittal and coronal reformatted images were obtained on the technologist's workstation. Oral contrast: No This CT examination was performed using dose optimization techniques as appropriate, variously including the following: *Automated exposure control *Adjustment of mA and/or kV according to patient size (this includes techniques or standardized protocols for targeted exams where dose is matched to indication/reason for exam; i.e. extremities or head) *Use of iterative reconstruction technique DLP: 690.2 mGy-cm FINDINGS: LUNG BASES: The visualized lung bases are unremarkable. LIVER, GALLBLADDER, AND BILIARY TREE: Moderate hepatic steatosis. Liver is elongated. No focal hepatic mass or intrahepatic biliary dilatation. Gallbladder is minimally distended and there may be trace sludge in the dependent gallbladder. No definite gallstones or gallbladder wall thickening or pericholecystic fluid or inflammatory change. PANCREAS: Unremarkable. SPLEEN: Unremarkable. ADRENAL GLANDS: Unremarkable. KIDNEYS AND URETERS: The kidneys are normal in size, shape, and attenuation. No hydronephrosis, hydroureter, or calculi seen. No perinephric stranding. BLADDER: Unremarkable. GASTROINTESTINAL TRACT: No bowel obstruction or right or left lower quadrant inflammatory change. No diverticulitis. Appendix normal. ABDOMINAL WALL: No significant hernia is appreciated. LYMPH NODES: Normal. VASCULAR: There is atherosclerotic but not aneurysmal. PELVIC VISCERA: Unremarkable. OSSEOUS STRUCTURES: There is degenerative change throughout the lumbar spine particularly at the lumbosacral junction process. CT/CT abdomen pelvis w IV con IMPRESSION: Hepatic steatosis. Trace sludge in the gallbladder.. No evidence for pericholecystic inflammatory change. Fleischner guidelines were followed. Electronically signed by: Yared Chamorro MD 05/26/2024 11:42 AM EDT
[2024-05-26] MEDS: iohexoL 350 MG/ML 100 ML INFUS..BTL 85 ML IV (10:39)
[2024-05-27 10:44] LABS: Creatinine POC 1.3 mg/dL (0.5-1.4); GFR POC > 60
== END 2024-05-26 09:16 | disposition home or self-care (01) ==
LOC: HO.CT 09:15
PROVIDERS: PCP Student in an Organized Health Care Education/Training Program; Visit Provider Student in an Organized Health Care Education/Training Program
DX: R93.2 Abnormal findings on diagnostic imaging of liver and biliary tract (principal)
CPT/HCPCS: 74177; 82565; Q9967

== ENCOUNTER 2024-06-29 10:23 | Outpatient (REF) | payer MEDICARE, SELFPAY ==
[2024-06-29 12:20] LABS: Prostate Specific Antigen 0.18 ng/mL (<0.05-4.0)
[2024-07-03 16:44] LABS: Testosterone, Free 16.5 pg/mL (35.0-155.0); Testosterone, Total 110 ng/dL (250-1100)
== END 2024-06-29 10:24 | disposition home or self-care (01) ==
LOC: HO.LAB 10:23
PROVIDERS: Visit Provider Nurse Practitioner Family
DX: N52.9 Male erectile dysfunction, unspecified (principal); Z12.5 Encounter for screening for malignant neoplasm of prostate
CPT/HCPCS: 36415; 84153; 84402; 84403

== ENCOUNTER 2024-07-09 09:58 | Outpatient (AMB) | payer MEDICARE, MEDICAID, SELFPAY ==
--- NOTE | 2024-07-09 09:59 | MHC.OFFVIS ---
Vital Signs 07/09/24 10:00 Height 6 ft 4 in Weight 277 lb 12.519 oz BMI 33.8 BP 130/82 Blood Pressure Location Rt brachial Position Sitting Pulse 74 Pulse Source Doppler Pulse Oximetry (%) 95 Oxygen Delivery Method Room Air Intake Visit Reasons: COPD Allergies No Known Allergies [No Known Allergies*] Allergy (Verified 05/04/24 10:10) HPI HPI COPD: Details: 59-year-old gentleman, active 22 pack-year smoker followed for emphysema and dyspnea on exertion. Patient has been using Anoro and Combivent with reasonable control of his symptoms except when climbing upstairs. His cardiac dobuamine stress test that showed no evidence of ischemia. At the last office visit he was started on bumetanide with significantly improve lower extremity edema. [facility] Medical History Methadone maintenance therapy patient Colon polyps Depression Peripheral edema COPD (chronic obstructive pulmonary disease) Hyperlipidemia Hypertension, essential Hepatitis C HIV (human immunodeficiency virus infection) Nicotine dependence, cigarettes, uncomplicated Surgical History History of colonoscopy Social History Patient Tobacco Use Status: Current everyday Tobacco user Tobacco use type: Cigarette Cigarette Packs Per Day: 1 Review of Systems Const Denies daytime sleepiness, Denies excessive sweating, Denies fatigue, Denies fever(s), Denies lethargy, Denies malaise, Denies night sweats, Denies snoring and Denies weight loss Eyes Denies blurry vision and Denies itchy eyes ENT Denies nasal congestion, Denies post nasal drip, Denies sinus pain, Denies sinus pressure and Denies other ( Thrush) Card Denies chest pain, Reports pedal edema, Denies dyspnea, Reports dyspnea on exertion, Denies orthopnea and Denies paroxysmal nocturnal dyspnea Resp Denies cough, Denies hemoptysis, Denies excessive phlegm production, Denies dyspnea, Reports dyspnea on exertion, Denies snoring and Denies wheezing GI Denies abdominal pain and Denies heartburn Musc Denies myalgias, Denies arthralgias and Denies joint swelling Skin/Breast Denies rash Neuro Denies memory loss and Denies seizure-like activity Psych Denies abnormal sleep pattern, Denies anxiety and Denies memory loss Endo Denies excessive sweating, Denies fatigue and Denies heat intolerance Juan Ramon/Lymph Denies easy bruising Aller/Immun Denies itchy eyes, Denies seasonal rhinorrhea and Denies wheezing Physical Exam Vital Signs: Last Vital Signs Pulse 74 07/09/24 10:00 BP 130/82 07/09/24 10:00 Pulse Ox 95 07/09/24 10:00 Oxygen Delivery Method Room Air 07/09/24 10:00 BMI result Body Mass Index 33.8 Const General: no acute distress and alert Nutritional Appearance: not obese Orientation/consciousness: Other orientation findings ( oriented) HEENT Head: Yes atraumatic Eyes General: appearance normal, both eyes and all related structures Sclerae: sclerae normal EOM: EOMs intact bilaterally Neck Neck: Yes supple Lymphatic: no lymphadenopathy noted Resp Effort & Inspection: normal respiratory effort and no use of accessory muscles Auscultation: clear to auscultation bilaterally Cardio Rate: regular rate Rhythm: regular rhythm Heart sounds: no gallops, no murmurs and no rubs Skin General skin exam: other ( warm) Extrem General: No clubbing, No cyanosis and Yes edema (1+ bilateral) Assessment & Plan Assessment & Plan (1) COPD (chronic obstructive pulmonary disease): Code(s): J44.9 - Chronic obstructive pulmonary disease, unspecified Category: Medical Plan: Well controlled current regimen of Anoro and Combivent, patient does have difficulties with powder inhaler will switch Anoro to Stiolto. (2) Lower extremity edema: Code(s): R60.0 - Localized edema Category: Medical Plan: Improved on Bumex. Continue current regimen of Bumex 1 mg daily. (3) Nicotine dependence, cigarettes, uncomplicated: Comment: (Current smoker, onset 18yo, 1ppd x 39yrs, 35pyh) Code(s): F17.210 - Nicotine dependence, cigarettes, uncomplicated Category: Medical Plan: Lung cancer screening CT chest from March of 2023 reviewed, no worrisome nodules. Follow-up lung cancer screening CT chest is pending. Coding Level of Care Code Est Pt Level 4 (37429) Complex EM visit Add On G2211 Diagnoses COPD (chronic obstructive pulmonary disease) J44.9 Lower extremity edema R60.0 Nicotine dependence, cigarettes, uncomplicated F17.210
[2024-07-09 10:00] VITALS: BP 130/82; PULSE 74; O2SAT 95; BMI 33.8
== END 2024-07-09 10:16 | disposition home or self-care (01) ==
PROVIDERS: PCP General Practice; Visit Provider Internal Medicine Pulmonary Disease
DX: J44.9 Chronic obstructive pulmonary disease, unspecified (principal); R60.0 Localized edema; F17.210 Nicotine dependence, cigarettes, uncomplicated
CPT/HCPCS: 99214; G2211

== ENCOUNTER → 2024-07-09 09:58 | Outpatient (BNVA) | payer MEDICARE, SELFPAY | PROVIDERS: PCP General Practice; Visit Provider Internal Medicine Pulmonary Disease | DX: J43.9 Emphysema, unspecified (principal); R60.0 Localized edema; F17.210 Nicotine dependence, cigarettes, uncomplicated | CPT/HCPCS: 99212 ==

== ENCOUNTER 2024-08-06 10:39 | Outpatient (REF) | payer MEDICARE, MEDICAID, SELFPAY | END 2024-08-06 10:40 | disposition home or self-care (01) | LOC: HO.CT 10:39 | PROVIDERS: PCP General Practice; Visit Provider Physician Assistant Medical | DX: Z12.2 Encounter for screening for malignant neoplasm of respiratory organs (principal); F17.210 Nicotine dependence, cigarettes, uncomplicated | CPT/HCPCS: 71271 ==

== ENCOUNTER → 2024-08-06 10:43 | Outpatient (BNV) | payer MEDICARE, MEDICAID, SELFPAY | PROVIDERS: PCP General Practice; Visit Provider Radiology Diagnostic Radiology | DX: Z87.891 Personal history of nicotine dependence (principal) | CPT/HCPCS: 71271 ==

== ENCOUNTER 2024-08-19 09:04 | Outpatient (AMB) | payer MEDICARE, SELFPAY ==
--- NOTE | 2024-08-19 09:11 | A.OFFVIS_ITS ---
Intake Visit Reasons: follow up/PSA(set) Intake Note: New Patient presents for initial visit for hydrocele ,erectile dysfunction, and lab results PSA: 0.18; Testosterone:110; Free Testosterone: 16.5 Urology Medications: Sildenafil Blood Thinner: none Lead Nitrate Processor Required: No Accompanied by: Self / Same As Patient Allergies No Known Allergies [No Known Allergies*] Allergy (Verified 08/19/24 09:46) Medication List - Last Reconciled 08/19/24 by HARMAN Lacey- sqetllksn-kisjftde-icskeet ala 50-200-25 mg (Biktarvy) ea PO blood pressure test kit-large As directed bumetanide 1 mg PO DAILY chlorhexidine gluconate 0.12% mL PO gabapentin 100 mg PO ibuprofen 800 mg PO ipratropium-albuterol 20-100 mcg/actuation (Combivent Respimat) grams inhalation naloxone 4 mg/actuation ea intranasal rosuvastatin 20 mg PO sildenafil (Viagra) 100 mg PO DAILY PRN 90 days tiotropium-olodaterol 2.5-2.5 mcg/actuation (Stiolto Respimat) 2 puffs inhalation DAILY HPI Comments Details: Julian is a 59-year-old male patient of Dr. White. He has a past medical history of depression, peripheral edema, COPD, hyperlipidemia, hypertension, hepatitis-C, HIV, and nicotine dependence. He presents to the office today for follow-up. Of note, patient was seen approximately 3 months ago as a new patient for large left hydrocele as well as erectile dysfunction at which time testosterone labs were ordered for further assessment evaluation. These results were reviewed with the patient today. Total testosterone: 05/15 74, 07/16 110 Free testosterone: 05/15 11.4, 07/16 16.5 LH: 05/15 1.0 FSH: 05/15 3.4 PSA: 07/16 0.2 We discussed hypogonadism in relation to methadone. We discussed further treatment options and risks and benefits of these treatment options. He reports noting since his last office visit here he has been having more left-sided scrotal discomfort. He does have a history of bilateral hydroceles left greater than right. We discussed further treatment options to include surveillance monitoring verses in office drainage verses surgical intervention. Risks and benefits of these interventions were discussed. He would like to move forward with left-sided hydrocelectomy as discussed. We discussed further treatment options of hypogonadism however patient would like to readdress this after surgical intervention. He does report noting episodes of urinary frequency however relates this to his diuretic. He otherwise denies incontinence, nocturia, hematuria, dysuria, foul smelling urine, changes to urinary stream, flank pain, fever, and or chills. In office urinalysis results reviewed with the patient today. He otherwise offers no other issues or concerns at this time. [facility] Medical History (Reviewed 08/19/24 @ 09:53 by [facility]) Methadone maintenance therapy patient Colon polyps Depression Peripheral edema COPD (chronic obstructive pulmonary disease) Hyperlipidemia Hypertension, essential Hepatitis C HIV (human immunodeficiency virus infection) Nicotine dependence, cigarettes, uncomplicated Surgical History History of colonoscopy Social History Patient Tobacco Use Status: Current everyday Tobacco user Tobacco use type: Cigarette Cigarette Packs Per Day: 1 Review of Systems Eyes Reports no additional complaints ENT Reports no additional complaints Card Reports as per HPI Resp Reports as per HPI GI Reports no additional complaints Reports as per HPI Musc Reports no additional complaints Neuro Reports as per HPI Psych Reports as per HPI Endo Reports no additional complaints Juan Ramon/Lymph Reports as per HPI Aller/Immun Reports no additional complaints Physical Exam Const General: cooperative, comfortable, no acute distress, well developed, alert and awake Orientation/consciousness: patient oriented x3 Limitations: no limitations HEENT Head: Yes normal to inspection, Yes normocephalic and Yes atraumatic Ears: hearing grossly normal bilaterally Eyes General: appearance normal, both eyes and all related structures Neck Neck: Yes normal visual inspection and Yes trachea midline Chest Chest palpation & inspection: normal inspection of the chest Resp Effort & Inspection: normal respiratory effort and able to speak in complete sentences Cardio Rate: regular rate GI Inspection: Yes normal to inspection General: Yes no CVA tenderness Back/Spine/Pelvis Back: no CVA tenderness Skin General skin exam: no rashes or lesions noted Neuro General: patient oriented x3 Extrem General: Yes normal to inspection Psych Appearance: grossly normal and well kempt Mental Status: mental status grossly normal Speech and movement: Normal speech and movement present and Clear speech present Affect: normal affect Attitude: cooperative Thought process: Normal thought process present Thought content: Normal thought content present Insight: Fair insight present (Psych) Judgement: Fair judgement present (Psych) Results AMB Urinalysis, Automated UA Leukoctes 0 Cady/uL Last Edit by [employer] on 08/19/24 09:23 UA Nitrite Last Edit by [employer] on 08/19/24 09:23 UA Urobilinogen 0.2 mg/dL Last Edit by [employer] on 08/19/24 09:23 UA Protein 0 mg/dL Last Edit by [employer] on 08/19/24 09:23 UA pH 7.0 Last Edit by [employer] on 08/19/24 09:23 UA Blood 0 Robe/uL Last Edit by [employer] on 08/19/24 09:23 UA Specific [place] 1.015 Last Edit by [employer] on 08/19/24 09:23 UA Ketone Negative Last Edit by [employer] on 08/19/24 09:23 UA Bilirubin 0 mg/dL Last Edit by [employer] on 08/19/24 09:23 UA Glucose 0 mg/dL Last Edit by [employer] on 08/19/24 09:23 Results Reviewed Results Reviewed: Laboratory Last Values Urine pH (Auto) 7.0 08/19/24 09:14 Specific [place] (Auto) 1.015 08/19/24 09:14 Urine Protein (Auto) 0 mg/dL 08/19/24 09:14 Glucose (UA)(Auto) 0 mg/dL 08/19/24 09:14 Urine Ketones (Auto) Negative 08/19/24 09:14 Urine Blood (Auto) 0 Robe/uL 08/19/24 09:14 Urine Bilirubin (Auto) 0 mg/dL 08/19/24 09:14 Urine Urobilinogen (Auto) 0.2 mg/dL 08/19/24 09:14 Leukocyte Esterase (Auto) 0 Cady/uL 08/19/24 09:14 Date of Service: 12/03/23 EXAMINATION: US SCROTUM FINDINGS: RIGHT: Right testicle measures 5.5 x 2.3 x 3.6 cm, volume 24.2 mL. No focal testicular parenchymal lesions are visualized. Spectral Doppler analysis of the arterial and venous flow is normal in the right testis. Right epididymal head is normal in size. No right varicocele is seen. Right hydrocele with volume approximately 26 mL. Right epididymal Doppler flow is normal. LEFT: Left testicle measures 4.6 x 2.7 x 3.9 cm, volume 24.7 mL. No focal testicular parenchymal lesions are visualized. Spectral Doppler analysis of the arterial and venous flow is normal in the left testis. Left epididymal head is normal in size. No left varicocele is seen. Left hydrocele with volume approximately 104 mL. Left epididymal Doppler flow is normal. IMPRESSION: Bilateral hydroceles, left greater than right. Assessment & Plan Assessment & Plan (1) Urinary frequency: Code(s): R35.0 - Frequency of micturition Category: Medical (2) Hydrocele: Code(s): N43.3 - Hydrocele, unspecified Category: Medical (3) Erectile dysfunction: Code(s): N52.9 - Male erectile dysfunction, unspecified Category: Medical (4) Hypogonadism in male: Code(s): E29.1 - Testicular hypofunction Category: Medical Plan: Risks, benefits and alternatives to therapy were discussed. These include but are not limited to infection, bleeding, damage to local organs and tissues, need for further interventions. ? Anesthetic risks regarding cardiac arrhythmia, blood clots, and potential mortality were discussed. The patient understands the typical recovery time and the outpatient nature of the procedure. After consideration of these risks the patient gives full informed consent and they wish to move ahead with the procedure. Plan In office urinalysis results reviewed with the patient today; as noted above. We discussed further treatment options of hypogonadism and risks and benefits of these interventions. We discussed treatment options for left-sided hydrocele; and risks and benefits of these interventions. Will proceed with left-sided hydrocelectomy as discussed. He otherwise denies any bothersome urinary issues. He reports be happy with current voiding parameters. Recent hypogonadism labs reviewed with the patient today; as noted above. Follow-up per doctor's orders; or sooner with any issues, concerns, and or questions. Orders: Orders AMB Urinalysis Automated Today Z13.9 - Encounter for screening, unspecified Patient Instructions: The patient had an opportunity to ask questions regarding the treatment plan. All questions were answered. Physical exam, labs, and imaging were discussed and reviewed in detail. As well as risks, benefits, and discussion of treatment choices. No major barriers to understanding were identified. The patient expressed understanding and agreement with the above treatment plan. The patient was made aware they should contact our office by phone for worsening of their current condition, the appearance of new symptoms, or with any questions or concerns. Compliance is encouraged with any medications and follow up testing that is ordered. It is a privilege to be allowed the opportunity to participate in? your urological care.? Again, if you have any questions or concerns If you have any questions or concerns please do not hesitate to contact me. The office is [phone]. This note is constructed using voice recognition software. While every effort has been made to ensure accuracy psychiatric clinician errors may have been included. Yours sincerely, NAS Lacey Coding Level of Care Code Est Pt Level 4 (34909) Diagnoses Urinary frequency R35.0 Hydrocele N43.3 Erectile dysfunction N52.9 Hypogonadism in male E29.1
== END 2024-08-19 09:52 | disposition home or self-care (01) ==
PROVIDERS: PCP Student in an Organized Health Care Education/Training Program; Visit Provider Nurse Practitioner Family
DX: R35.0 Frequency of micturition (principal); N43.3 Hydrocele, unspecified; N52.9 Male erectile dysfunction, unspecified; E29.1 Testicular hypofunction; Z13.9 Encounter for screening, unspecified
CPT/HCPCS: 99214

== ENCOUNTER → 2024-08-19 09:04 | Outpatient (BNVA) | payer MEDICARE, SELFPAY | PROVIDERS: PCP Student in an Organized Health Care Education/Training Program; Visit Provider Nurse Practitioner Family | DX: R35.0 Frequency of micturition (principal); N43.3 Hydrocele, unspecified; N52.9 Male erectile dysfunction, unspecified; E29.1 Testicular hypofunction | CPT/HCPCS: 81003; 99212 ==

== ENCOUNTER 2024-10-06 05:39 | Day surgery (SDC) | payer MEDICARE, SELFPAY ==
--- OUTSIDE RECORDS SUMMARY | 2024-09-29 19:33 | XMS_ITS | Continuity of Care Document ---
Author Organization [facility] Address [address] [place] [address] [address] [place] [id number] Phone Care Team Providers [employer] Name Role Phone Adriana Strong MD, FACS, RVT Unavailable Unavailable Advance Directives Directive Yes / No Effective Date File Name No Information Encounters Encounter Description Practice Location Reason(s) For Visit Diagnoses Date Provider Providers Copied on Encounter [facility], [address] [facility] [address], [place], [id number], tel:[phone] [facility] No Information [employer] [address] [place] [address], [address], . tel:[phone] Family History Family Member Type Diagnosis Age At Onset No Information Payers Payer name Insurance type Covered alliance party ID Authoriza tion(s) No Information Social History [...]
[2024-10-02 09:29] VITALS: BMI 33.8
--- NOTE | 2024-10-05 09:32 | P.CONAN_ITS ---
Documented by User: Fadia Gonsalves NP 10/05/24 09:36 HPI - Anesthesia Eval Consult details Narrative: 59yo M for Left Hydrocele Repair Methadone daily PMFSH Active Problems Active Problems: All Active Problems Hypogonadism in male (Acute) Urinary frequency (Acute) Hydrocele (Acute) Erectile dysfunction (Acute) Lower extremity edema (Acute) Dyspnea on exertion (Acute) COPD (chronic obstructive pulmonary disease) (Acute) Nicotine dependence, cigarettes, uncomplicated (Acute) Past Medical History Medical History Methadone maintenance therapy patient Colon polyps Depression Peripheral edema COPD (chronic obstructive pulmonary disease) Hyperlipidemia Hypertension, essential Hepatitis C HIV (human immunodeficiency virus infection) Nicotine dependence, cigarettes, uncomplicated Surgical History Surgical History History of colonoscopy Social History Social History Patient Tobacco Use Status: Current everyday Tobacco user Tobacco use type: Cigarette and Smokeless Tobacco Cigarette Packs Per Day: 1 Cigarettes Per Day: 20 Substance Use Type Other:: on methadone Are you DNR?: No Advance Directives: No Advance Directives Information Provided: Yes Meds Allergies Allergy/AdvReac Type Severity Reaction Status Date / Time No Known Allergies Allergy Verified 10/06/24 06:21 [No Known Allergies*] Home Medications ?Medication ?Instructions ?Recorded ?Confirmed ?Last Taken ?Type bictegravir 50 mg-emtricitabine 1 tab PO DAILY 11/06/22 10/06/24 10/06/24 05:15 History 200 mg-tenofovir alafenam 25 mg tablet (Biktarvy) blood pressure test kit-large #1 ea 11/06/22 Unknown History gabapentin 100 mg capsule 100 mg PO TID 11/06/22 10/02/24 Unknown History ibuprofen 800 mg tablet 800 mg PO TID PRN Pain 11/06/22 10/02/24 Unknown History ipratropium 20 mcg-albuterol 100 1 puff inhalation DAILY 11/06/22 10/02/24 Unknown History mcg/actuation mist for inhalation (Combivent Respimat) naloxone 4 mg/actuation nasal spray ea intranasal 11/06/22 Unknown History rosuvastatin 20 mg tablet 20 mg PO DAILY 11/06/22 10/06/24 10/06/24 05:15 History chlorhexidine gluconate 0.12 % ml PO 05/17/23 Unknown History mouthwash methadone 10 mg/5 mL oral solution 110 mg PO DAILY 10/02/24 10/02/24 Unknown History chlorthalidone 25 mg tablet 25 mg PO DAILY 10/06/24 10/06/24 10/06/24 05:15 History umeclidinium 62.5 mcg-vilanterol 1 ea inhalation DAILY 10/06/24 10/06/24 10/06/24 05:15 History 25 mcg/actuation powdr for inhalation (Anoro Ellipta) Exam Height,Weight and Vital Signs: Height 6 ft 4 in Weight 126.099 kg Narrative Narrative: Dobutamine Stress ECHO 2022 Protocol: DOBUTAMINE Max HR: 162 BPM 100% of Pred: 162 BPM Max BP: 184/050 mmHG Max Work Load: 1.0 METS Pharnacological stress test with Dobutamine infusion to max of 30 mcg/kg/min, achieivng greater than 85% MPHR, with short atrial runs, no anginal symptoms, with normotensive response to infusion, with borderline ST changes. Echo images obtained by [employer] at rest, at 20 mcg/kg/min and 30 mcg/kg/min, Definity contrast used. Test reviewed with Dr. Church. Dobutamine stress echocardiogram reviewed. At rest, there is normal LVEF and wall motion. With dobutamine at the above doses, no evidence of wall motion abnormality. Normal decrease in end-systolic volumes. Overall, normal study. Assessment and Plan Assessment Anesthesia Assessment: Chart Reviewed Documented by User: Harshad Calderon MD 10/06/24 07:29 PMFSH Past Medical History Medical History Methadone maintenance therapy patient Colon polyps Depression Peripheral edema COPD (chronic obstructive pulmonary disease) Hyperlipidemia Hypertension, essential Hepatitis C HIV (human immunodeficiency virus infection) Nicotine dependence, cigarettes, uncomplicated Family History Family history of problems with anesthesia: No Surgical History Surgical History History of colonoscopy History of Problems with Anesthesia: No Social History Social History Patient Tobacco Use Status: Current everyday Tobacco user Tobacco use type: Cigarette and Smokeless Tobacco Cigarette Packs Per Day: 1 Cigarettes Per Day: 20 Substance Use Type Other:: on methadone Are you DNR?: No Advance Directives: No Advance Directives Information Provided: Yes Meds Allergies Allergy/AdvReac Type Severity Reaction Status Date / Time No Known Allergies Allergy Verified 10/06/24 06:21 [No Known Allergies*] Home Medications ?Medication ?Instructions ?Recorded ?Confirmed ?Last Taken ?Type bictegravir 50 mg-emtricitabine 1 tab PO DAILY 11/06/22 10/06/24 10/06/24 05:15 History 200 mg-tenofovir alafenam 25 mg tablet (Biktarvy) blood pressure test kit-large #1 ea 11/06/22 Unknown History gabapentin 100 mg capsule 100 mg PO TID 11/06/22 10/02/24 Unknown History ibuprofen 800 mg tablet 800 mg PO TID PRN Pain 11/06/22 10/02/24 Unknown History ipratropium 20 mcg-albuterol 100 1 puff inhalation DAILY 11/06/22 10/02/24 Unknown History mcg/actuation mist for inhalation (Combivent Respimat) naloxone 4 mg/actuation nasal spray ea intranasal 11/06/22 Unknown History rosuvastatin 20 mg tablet 20 mg PO DAILY 11/06/22 10/06/24 10/06/24 05:15 History chlorhexidine gluconate 0.12 % ml PO 05/17/23 Unknown History mouthwash methadone 10 mg/5 mL oral solution 110 mg PO DAILY 10/02/24 10/02/24 Unknown History chlorthalidone 25 mg tablet 25 mg PO DAILY 10/06/24 10/06/24 10/06/24 05:15 History umeclidinium 62.5 mcg-vilanterol 1 ea inhalation DAILY 10/06/24 10/06/24 10/06/24 05:15 History 25 mcg/actuation powdr for inhalation (Anoro Ellipta) Exam Airway Mallampati Class: II TM Dist: >3cm Neck ROM: Full Denture: Upper and Lower Heart: ok Lungs: ok. on methadone Assessment and Plan Assessment Anesthesia Assessment: Anesthesia Plan Discussed Final Anesthetic Review Family History of Problems with Anesthesia: No History of Problems with Anesthesia: No NPO: Yes ASA Class: III Final Preanesthetic Review: No Changes in Pt Med Stat, Meds/Allgs Chart Reviewed, Consent Obtained/Reviewed and Anes Risks/Benef Reviewed Patient Risk: Intermediate Procedure Risk: Low Anesthetic Plan Anesthetic Plan: GA and Agree w/ Assess. and Plan Disposition: Standard PACU
[2024-10-06] VITALS (10 sets, daily range): BP systolic 126–158; BP diastolic 73–94; PULSE 66–72; RESP 16–20; TEMP 36.2–37.2; O2SAT 94–98; BMI 34.3
[2024-10-06] MEDS: Lactated Ringers 1,000 ML 100 ML IVCONT (07:18)
--- NOTE | 2024-10-06 07:33 | MHC.SHP ---
Pre-Procedural Eval Section A - 24 Hr Update-Section A only Date of Service: 10/06/24 The patient is an INPATIENT: No The patient has been examined within 24 hours of the surgical procedure. The History & Physical has been completed within 30 days and I have reviewed it.: Yes Section B - Complete if H&P > 30 days Chief Complaint: Hydrocele, unspecified Allergies: Allergies Allergy/AdvReac Type Severity Reaction Status Date / Time No Known Allergies Allergy Verified 10/06/24 06:21 [No Known Allergies*] Plan Diagnosis/Plan: Unchanged I have reviewed the history and physical and performed a pertinent physical examination on my patient. No changes have occurred unless specified. Left Hydrocele repair. Time Spent With Patient Time: Total time managing care of this patient today ____ minutes.
--- NOTE | 2024-10-06 09:25 | W.PM.OPN ---
Operative Note Operative Note Date of Service: 10/06/24 Narrative: PreOperative Diagnosis:? ? Left hydrocele Post Operative Diagnosis: Left hydrocele Procedure: Left hydrocelectomy, excision of hydrocele sac Surgeon:?Dr Jose L Grant Anesthesia:? General Procedure: After informed consent was verified the patient was brought to the operating room and placed in a supine position.? Anesthesia was performed per protocol. The patient was prepped and draped in the usual sterile fashion. Safety pause time-out was performed. Antibiotics confirmed. A marker was used to loyd the median raphe. Attention was taken to the left hemiscrotum A horizontal incision was made through the skin with a 15 blade knife, cautery was used to incise the dartos fascia, the plane between the dartos fascia and the tunical vaginalis was developed with blunt dissection and cautery. The testicle was delivered into the operative field. The gubernaclar attachments are taken down with electrocautery. The tunica vaginalis was opened with sharp dissection vertically in the midline, the hydrocele fluid is drained and suctioned, and some of the fluid sent for cytology, the hydrocele fluid was clear yellow. The hydrocele sac was opened in the midline a portion of the sac was sent to pathology, the tunica vaginalis was wrapped posteriorly and the edges were oversewn with 3-0 chromic. Cautery was used for hemostasis. The dartos fascia was closed with running locking 3-0 chromic and the skin was closed with interrupted 3-0 chromic there was good hemostasis noted. The patient tolerated the procedure well and was transferred to the recovery area upon completion. Complications: None EBL: minimal Drains: None
[2024-10-06] MEDS: fentaNYL citrate/PF 100 MCG/2 ML VIAL 50 MCG IVPUSH ×2 (09:26→09:33)
[2024-10-06] MEDS: Acetaminophen 325 MG TABLET 975 MG PO (09:38)
== END 2024-10-06 10:35 | disposition home or self-care (01) ==
PROVIDERS: PCP General Practice; Visit Provider Urology
PROC: (CPT 55060; principal; 2024-10-06 07:30)
DX: N43.3 Hydrocele, unspecified (principal); N52.9 Male erectile dysfunction, unspecified; E29.1 Testicular hypofunction; R35.0 Frequency of micturition; B20 Human immunodeficiency virus [HIV] disease; B19.20 Unspecified viral hepatitis C without hepatic coma; I10 Essential (primary) hypertension; J44.9 Chronic obstructive pulmonary disease, unspecified; R60.9 Edema, unspecified; F32.A Depression, unspecified; F11.20 Opioid dependence, uncomplicated; Z79.51 Long term (current) use of inhaled steroids; Z79.899 Other long term (current) drug therapy; Z79.1 Long term (current) use of non-steroidal anti-inflammatories (NSAID); F17.210 Nicotine dependence, cigarettes, uncomplicated
CPT/HCPCS: 55040; 88302; 88305; J0690; J1885; J2003; J2704; J2795; J3010

== ENCOUNTER → 2024-10-06 05:39 | Outpatient (BNV) | payer MEDICARE, SELFPAY | PROVIDERS: PCP General Practice; Visit Provider Urology | DX: N43.3 Hydrocele, unspecified (principal) | CPT/HCPCS: 55040 ==

== ENCOUNTER 2024-10-28 11:54 | Outpatient (REF) | payer MEDICARE, SELFPAY ==
[2024-10-28 13:08] LABS: MANUAL DIFF FLAG NO
[2024-10-28 13:16] LABS: Appearance Urine Clear; Color Urine Yellow; Glucose Urine UA Negative (Negative); Leukocyte Esterase Urine Negative (Negative); Nitrite Urine Negative (Negative); PH 6.5 (5.0-9.0); Urine Blood Negative (Negative); Urine Ketones Negative (Negative); Urine Protein Negative (Neg-Trace)
[2024-10-28 13:17] LABS: Basophils Percent Auto 0.5 % (0-2); Eosinophils Absolute Auto 0.3 X10*3/uL (0.0-0.4); Eosinophils Percent Auto 4.1 % (0-4); Hematocrit 41.1 % (42.0-52.0); Hemoglobin 13.8 g/dl (14.0-18.0); Imm Gran Abs Auto 0.05 X10*3/uL (0.00-0.03); Imm Gran Pct Auto 0.8 % (0.0-0.4); Lymphocytes Absolute Auto 1.9 X10*3/uL (1.2-4.9); Lymphocytes Percent Auto 29.2 % (20-40); Mean Corpuscular HGB Conc 33.6 g/dl (31.0-36.0); Mean Corpuscular Hemoglobin 31.4 pg (27.0-33.0); Mean Corpuscular Volume 93.4 fL (80.0-98.0); Mean Platelet Volume 11.1 fL (9.4-12.4); Monocytes Absolute Auto 0.9 X10*3/uL (0.1-1.2); Monocytes Percent Auto 13.6 % (2-11); Neutrophils Absolute Auto 3.3 x10*3/uL (2.0-8.3); Neutrophils Percent Auto 51.8 % (45-73); Platelet Count 191 X10*3/uL (160-400); Red Cell Distribution Width 14.9 % (11.0-16.0); White Blood Count 6.3 X10*3/uL (4.8-10.8)
[2024-10-28 13:19] LABS: Bacteria Urine None Seen (None Seen); Hyaline Casts Urine 0-2 /LPF (0-2); RBC Urine 0-2 /HPF (0-2); Squamous Epithelial Cell Urine 0-2 /HPF (0-2); WBC Urine 0-5 /HPF (0-5)
[2024-10-28 13:31] LABS: Estimated Average Glucose 117 mg/dL; Hemoglobin A1C 142.9531 umol/L; Hemoglobin A1c % 5.7 % (<6.0); Total Hemoglobin (HGBA1C) 3663.7137 umol/L
--- OUTSIDE RECORDS SUMMARY | 2024-10-28 13:35 | XMS_ITS | Clinical Summary ---
Author Organization [facility] ity Address [address] [place] [address] Care Team Providers Care Director Trust Name Role Phone Unavailable Primary Care Provider Unavailabl e Social History Tobacco Use Types Packs/Day Years Used Date Smoking Tobacco: Never Assessed Sex and Gender Information Value Date Recorded Sex Assigned at Not on file Gender Identity Not on file Sexual Orientation Not on file Plan of Treatment Health Maintenance Due Date Last Done Comments DTaP,Tdap,and Td Vaccines (1 - Tdap) 1983 Zoster Vaccines (1 of 2) 2014 COVID-19 Vaccine (2023-2 5 season) 2024 Influenza Vaccine (#1) 2024 RSV Immunization Patients 60 + Years Old (1 - 1-dose 75+ series) 2039 HIB Vaccines Aged Out No longer eligi ble based on patient's age to complete this topic HPV Vaccines Aged Out No longer eligi ble based on patient's age to complete this topic Hepatitis A Vaccines Aged Out No long er eligible based on patient's age to complete this topic Hepatitis B Vaccines Aged Out No long er eligible based on patient's age to complete this topic IPV Vaccines Aged Out No longer eligi ble based on patient's age to complete this topic MMR Vaccines Aged Out No longer eligi ble based on patient's age to complete this topic Meningococcal ACWY Vaccine Aged Out N o longer eligible based on patient's age to complete this topic Pneumococcal Vaccine: Pediat rics (0 to 5 Years) and At-Risk Patients (6 to 64 Years) Aged Out No longer eligible b ased on patient's age to complete this topic RSV Immunization Patients Un whitney 20 months Aged Out No longer eligible b ased on patient's age to complete this topic Varicella Vaccines Aged Out No longer eligible based on patient's age to complete this topic
--- OUTSIDE RECORDS SUMMARY | 2024-10-28 13:35 | XMS_ITS | Continuity of Care Document ---
Author Organization [facility] Address [address] [place] [address] [address] [place] [phone] Phone Care Team Providers Care Credit Collections Manager Name Role Phone Adriana Strong MD, FACS, RVT Unavailable Unavailable Advance Directives Directive Yes / No Effective Date File Name No Information Encounters Encounter Description Practice Location Reason(s) For Visit Diagnoses Date Provider Providers Copied on Encounter [facility], [address] [facility] [address], [place], [id number], tel:[phone] [facility] No Information [employer]. [address] [place] [address], [address], . tel:[phone] Family History Family Member Type Diagnosis Age [...]
[2024-10-28 13:37] LABS: Alanine Aminotransferase 26 U/L (0-40); Albumin Level 3.9 g/dL (3.5-5.0); Alkaline Phosphatase 84 U/L (39-117); Anion Gap 11 (12-20); Aspartate Amino Transferase 40 U/L (5-37); Bilirubin Total 0.3 mg/dL (0.0-1.0); Blood Urea Nitrogen 15 mg/dL (9-16); Calcium 8.5 mg/dL (8.4-10.2); Carbon Dioxide 29 mmol/L (22-29); Chloride 102 mmol/L (96-108); Cholesterol 165 mg/dL (<200); Estimated Glomerular Filt Rate > 60; Glucose Random 100 mg/dL (60-115); HDL Cholesterol 24 mg/dL (>40); LDL Cholesterol Calculated 81 mg/dL (<100); Potassium 3.5 mmol/L (3.3-5.1); Sodium 138 mmol/L (135-145); Total Protein 7.9 g/dL (6.5-8.0); Triglycerides 304 mg/dL (<150)
[2024-10-28 13:44] LABS: Syphilis Screen Nonreactive (Nonreactive)
[2024-10-28 13:45] LABS: Hepatitis A Antibody IgG REACTIVE (Nonreactive); ~Hepatitis A Antibody IgG 6.66 S/CO (0.00-0.99)
[2024-10-28 13:47] LABS: HBS Num1 211.38 mIU/mL (0-7.99); HBc Num1 4.45 S/CO (0.00-0.79); HBsAGNum1 0.38 S/CO (0.00-0.99); Hepatitis B Surface Antigen Negative (Negative); ~Hepatitis B Surface Antibody REACTIVE (Nonreactive)
[2024-10-28 14:12] LABS: Reflex LDLD? No
[2024-10-28 14:49] LABS: CT PCR NOT DETECTED (Not Detect.); NG PCR NOT DETECTED (Not Detect.)
[2024-10-29 07:50] LABS: HBc Num2 4.48 S/CO; HBc Num3 4.58 S/CO; Hepatitis B Core Antibody Reactive (Nonreactive)
[2024-10-30 07:44] LABS: Rubella IgG Antibody <0.90 Index
[2024-10-30 15:04] LABS: HIV RNA PCR Qn Copies 162 copies/mL (NOT DETECTED); HIV RNA PCR Qn Log Copies 2.21 (NOT DETECTED)
[2024-10-30 20:53] LABS: HCV Log PCR <1.18 NOT DETECTED Log IU/mL (NOT DETECTED); HepC Viral Load <15 NOT DETECTED IU/mL (NOT DETECTED)
[2024-10-31 03:18] LABS: TS Negative Control Passed; TS Panel A 0; TS Panel B 0; TS Positive Control Passed; TSpotTB Negative (Negative)
[2024-11-01 17:43] LABS: Absolute CD3 Count 1197 cells/uL (840-3060); Absolute CD4 Count 562 cells/uL (490-1740); Absolute CD8 Count 570 cells/uL (180-1170); Absolute Lymphocytes 1797 cells/uL (850-3900); CD4 CD8 Ratio 0.99 (0.86-5.00); Percent CD3 Cells 67 % (57-85); Percent CD4 Cells 31 % (30-61); Percent CD8 Cells 32 % (12-42)
== END 2024-10-28 11:55 | disposition home or self-care (01) ==
LOC: HO.HHCL 11:54
PROVIDERS: Visit Provider Student in an Organized Health Care Education/Training Program
DX: B20 Human immunodeficiency virus [HIV] disease (principal); Z13.1 Encounter for screening for diabetes mellitus
CPT/HCPCS: 80053; 80061; 81001; 83036; 85025; 86359; 86360; 86481; 86704; 86706; 86708; 86735; 86762; 86765; 86780; 87340; 87491; 87522; 87536; 87591

== ENCOUNTER → 2024-10-30 15:33 | Outpatient (REF) | payer MEDICARE, SELFPAY ==
--- OUTSIDE RECORDS SUMMARY | 2024-10-30 15:35 | XMS_ITS | Continuity of Care Document ---
Author Organization [facility] Address [address] [place] [address] [address] [place] [phone] Phone Care Team Providers Care Paper Cap Machine Operator Name Role Phone Adriana Strong MD, FACS, RVT Unavailable Unavailable Advance Directives Directive Yes / No Effective Date File Name No Information Encounters Encounter Description Practice Location Reason(s) For Visit Diagnoses Date Provider Providers Copied on Encounter [facility], [address] [facility] [address], [place], [id number], tel:[phone] [facility] No Information [address] [employer]. [address] [place] [address], [address], . tel:[phone] Family History Family Member Type Diagnosis Age At Onset No Information Payers Payer name Insurance type Covered constitution party ID Authoriza tion(s) No Information Social [...]
--- OUTSIDE RECORDS SUMMARY | 2024-10-30 15:35 | XMS_ITS | Clinical Summary ---
Author Organization [facility] Address [address] [place] [address] Care Team Providers Care Coal Chemist Name Role Phone Unavailable Primary Care Provider [...]
--- NOTE | 2024-10-30 15:40 | CA_ITS ---
Transthoracic Echocardiogram Patient (Last, First, Middle): Julian Pathak J Gender: Male Date of : 1965 Age: 59 Procedure Date: 10/30/2024 Procedure Type: Transthoracic Echocardiogram Location: OP Height: 193.04 cm Weight: 131.54 kg BSA: 2.59 m2 Heart Rate: bpm BP: 134 / 80 mmHg Ruling Technician: Referring MD: Rain White MD Symptoms: R91.[address] SCAN, EVAL FOR PERICARDIAL EFFUSION Study Quality: Fair/Contrast used ECG Rhythm: Sinus Conclusions: - Normal left ventricular size and systolic function. There is moderately increased left ventricular wall thickness. The visually estimated ejection fraction is between 60-65%. - Normal right ventricular cavity size and systolic function. - There is mild dilatation of the ascending aorta measuring 3.50 cm. - There is no evidence of pericardial effusion. Findings Procedure Information Contrast agent, definity, is being given per protocol without apparent complications. Left Ventricle Normal left ventricular size and systolic function. There is moderately increased left ventricular wall thickness. The visually estimated ejection fraction is between 60-65%. There is no evidence of regional wall motion abnormalities. Abnormal diastolic function is noted. Spectral Doppler is indicative of an impaired relaxation filling pattern. E/E prime ratio is between 8 and 15 consistent with indeterminate filling pressures. Right Ventricle Normal right ventricular cavity size and systolic function. Atria The left atrium is normal in size. The right atrium is normal in size. Aortic Valve The aortic valve structure and function is likely normal. There is no aortic valve stenosis. There is no aortic valve regurgitation. Mitral Valve The mitral valve appears normal. There is no mitral valve regurgitation. There is no mitral valve stenosis. Pulmonic Valve The pulmonic valve is likely normal. Tricuspid Valve Normal tricuspid valve structure. There is trace tricuspid valve regurgitation. Normal right atrial pressure. There is no evidence of pulmonary hypertension. Great Vessels There is mild dilatation of the ascending aorta measuring 3.50 cm. The visualized portions of the pulmonary artery and branches are normal. Venous The inferior vena cava is normal in size and collapses greater than 50% with inspiration. Pericardium/Pleural Prominent epicardial adipose tissue noted. There is no evidence of pericardial effusion. Prior Study Comparison No significant change compared to prior study dated: 06/13/2023. Measurements 2D Linear Measurements IVSd: 1.31 0.6-0.9/0.6-1.0 cm LVIDd: 4.75 3.9-5.3/4.2-5.9 cm LVIDd Index: 1.83 2.4-3.2/2.2-3.1 cm/m2 LVIDs: 3.05 2.0-3.6 cm LVPWd: 1.32 0.7-1.1 cm Ao Root: 3.80 2.1-3.5 cm LA Diam: 4.00 2.7-3.8/3.0-4.0 cm LAIDs Index: 1.54 1.5-2.3 cm/m2 LV Mass: 306.57 67-162/88-224 g LV Mass Index: 118.37 43-95/49-115 g/m2 LVOT Diam: 2.40 3.0+(-)1.3 cm Mitral Valve MV Pk E: 0.59 MV PK A: 0.81 MV Decel Time: 338.00 E/A: 0.70 E'Lateral: 8.38 E'Medial: 5.11 E/E' Med: 11.60 E/E' Lat: 7.10 PHT: 99.00 MVA PHT: 2.22 Decel [place]: 1.75 Aortic Valve AoV Pk Thanh: 1.62 AoV Mn Thanh: 1.06 AoV VTI: 0.32 AoV Pk Grad: 10.00 Aov Mn Grad: 5.00 JOSE Cont.VTI: 3.83 LVOT LVOT Pk Thanh: 1.16 LVOT Mn Thanh: 0.77 LVOT VTI: 0.27 LVOT Pk Grad: 5.00 LVOT Mn Grad: 3.00 LVOT Diam: 2.40 LVOT Area: 4.52 Diastolic Function MV Pk E: 0.59 MV Pk A: 0.81 E/A: 0.70 E'Medial: 5.11 E/E' Med: 11.60 E' Laterial: 8.38 E/E' Lat: 7.10 Right Ventricle TAPSE (mm): 28.00 TVS' Thanh: 17.00 Tricuspid Valve TR Pk Thanh: 1.85 TR Pk Grad: 14.00 RA Press: 3.00 RVSP: 17.00 Great Vessels Aorta Ao Root-2D: 3.80 2.0-3.7 cm Ao Asc: 3.50 2.1-3.4 cm Pulmonary Valve PV Pk Thanh: 0.96 Peak PV Grad: 4.00 Updated in Other Vendor System with Status of Final Christo Church MD electronically signed on 11/01/2024 11:53:01 AM with status of Final
== END ==
LOC: HO.CARD 15:33
PROVIDERS: PCP General Practice; Visit Provider General Practice
DX: R91.8 Other nonspecific abnormal finding of lung field (principal)
CPT/HCPCS: 93306; Q9957

== ENCOUNTER → 2024-10-30 15:40 | Outpatient (BNV) | payer MEDICARE, SELFPAY | PROVIDERS: PCP General Practice; Visit Provider Internal Medicine Cardiovascular Disease | DX: R91.8 Other nonspecific abnormal finding of lung field (principal) | CPT/HCPCS: 93306 ==

== ENCOUNTER 2024-11-12 13:03 | Outpatient (AMB) | payer MEDICARE, SELFPAY ==
--- NOTE | 2024-11-12 13:05 | A.OFFVIS_ITS ---
Intake Visit Reasons: Hydrocelectomy- follow up Intake Note: Patient presents today for post op follow up on: Hydrocelectomy Urology Medications: Sildenafil Blood Thinner: none [employer] Required: No Accompanied by: Self / Same As Patient Allergies No Known Allergies [No Known Allergies*] Allergy (Verified 11/12/24 13:16) Medication List - Last Reconciled 11/12/24 by Jose L Grant MD xavzgliqu-ztymtalj-pedrddc ala 50-200-25 mg (Biktarvy) 1 tab PO DAILY blood pressure test kit-large As directed bumetanide 1 mg PO DAILY chlorhexidine gluconate 0.12% mL PO chlorthalidone 25 mg PO DAILY ibuprofen 800 mg PO TID PRN ipratropium-albuterol 20-100 mcg/actuation (Combivent Respimat) 1 puff inhalation DAILY methadone 110 mg PO DAILY naloxone 4 mg/actuation ea intranasal rosuvastatin 20 mg PO DAILY sildenafil (Viagra) 100 mg PO DAILY PRN 90 days umeclidinium-vilanterol 62.5-25 mcg/actuation (Anoro Ellipta) 1 ea inhalation DAILY HPI Comments Details: 11/12/24--Julian is status post left hydrocelectomy on 10/06/2024, he states he is doing well the postoperative swelling has resolved and he feels the size is that to normal. He denies any pain. On examination incision is healing well no signs of infection. Continue follow-up with nurse practitioner. 08/19/24--Julian is a 59-year-old male patient of Dr. White. He has a past medical history of depression, peripheral edema, COPD, hyperlipidemia, hypertension, hepatitis-C, HIV, and nicotine dependence. He presents to the office today for follow-up. Of note, patient was seen approximately 3 months ago as a new patient for large left hydrocele as well as erectile dysfunction at which time testosterone labs were ordered for further assessment evaluation. These results were reviewed with the patient today. Total testosterone: 05/15 74, 07/16 110 Free testosterone: 05/15 11.4, 07/16 16.5 LH: 05/15 1.0 FSH: 05/15 3.4 PSA: 07/16 0.2 We discussed hypogonadism in relation to methadone. We discussed further treatment options and risks and benefits of these treatment options. He reports noting since his last office visit here he has been having more left-sided scrotal discomfort. He does have a history of bilateral hydroceles left greater than right. We discussed further treatment options to include surveillance monitoring verses in office drainage verses surgical intervention. Risks and benefits of these interventions were discussed. He would like to move forward with left-sided hydrocelectomy as discussed. We discussed further treatment options of hypogonadism however patient would like to readdress this after surgical intervention. He does report noting episodes of urinary frequency however relates this to his diuretic. He otherwise denies incontinence, nocturia, hematuria, dysuria, foul smelling urine, changes to urinary stream, flank pain, fever, and or chills. In office urinalysis results reviewed with the patient today. He otherwise offers no other issues or concerns at this time. [facility] Medical History Methadone maintenance therapy patient Colon polyps Depression Peripheral edema COPD (chronic obstructive pulmonary disease) Hyperlipidemia Hypertension, essential Hepatitis C HIV (human immunodeficiency virus infection) Nicotine dependence, cigarettes, uncomplicated Surgical History History of colonoscopy Social History Patient Tobacco Use Status: Current everyday Tobacco user Tobacco use type: Cigarette and Smokeless Tobacco Cigarette Packs Per Day: 1 Cigarettes Per Day: 20 Review of Systems Const All systems reviewed & are unremarkable except as noted in HPI and below Reports no additional complaints Eyes Reports no additional complaints ENT Reports no additional complaints Card Reports no additional complaints Resp Reports no additional complaints GI Reports no additional complaints Reports as per HPI Musc Reports no additional complaints Skin/Breast Reports system reviewed and no additional complaints, except as documented Neuro Reports no additional complaints Psych Reports no additional complaints Endo Reports no additional complaints Juan Ramon/Lymph Reports no additional complaints Aller/Immun Reports no additional complaints Assessment & Plan Assessment & Plan (1) Urinary frequency: Code(s): R35.0 - Frequency of micturition Category: Medical (2) Hydrocele: Code(s): N43.3 - Hydrocele, unspecified Category: Medical (3) Erectile dysfunction: Code(s): N52.9 - Male erectile dysfunction, unspecified Category: Medical (4) Hypogonadism in male: Code(s): E29.1 - Testicular hypofunction Category: Medical Plan Status post left hydrocelectomy incision is healing well. Continue 6 months follow-up with nurse practitioner Patient Instructions: The patient had an opportunity to ask questions regarding treatment plan. The patient expressed understanding and agreement with the above treatment plan. The patient is aware they should contact our office by phone for worsening of their current condition or the appearance of new symptoms. Compliance is encouraged with any medications and followup testing that is ordered. It is a privilege to be allowed the opportunity to participate in the urologic care of your patient. If you have any questions or concerns regarding treatment for the above conditions please do not hesitate to contact me. The office telephone contact is [phone]. This note is constructed in part using voice recognition software. While every effort has been made to ensure accuracy dry room operator errors may have been included. Yours sincerely, Jose L Grant MD Coding Level of Care Code Est Pt Level 3 (72592) Diagnoses Urinary frequency R35.0 Hydrocele N43.3 Erectile dysfunction N52.9 Hypogonadism in male E29.1
--- OUTSIDE RECORDS SUMMARY | 2024-11-12 13:57 | XMS_ITS | Clinical Summary ---
Author Organization [facility] it[facility] Address [address] [place] [address] Care Team Providers Care Surplus Property Disposal Agent Name Role Phone Unavailable Primary Care Provider Unavailabl e Social History Tobacco Use Types Packs/Day Years Used Date Smoking Tobacco: Never Assessed Sex and Gender Information Value Date Recorded Sex Assigned at Not on file Legal Sex Male 10:21 AM EST Gender Identity Not on file Sexual Orientation Not on file Plan of Treatment Health Maintenance Due Date Last Done Comments DTaP,Tdap,and Td Vaccines (1 - Tdap) 1983 Pneumococcal Vaccine: 50+ Ye ars (1 of 1 - PCV) 2014 Zoster Vaccines (1 of 2) 2014 COVID-19 Vaccine (1 - 2023-2 5 season) 2024 Influenza Vaccine (#1) 2024 [...] patient's age to complete this topic Meningococcal B Vacine Aged Out No lo nger eligible based on patient's age to complete [...]
--- OUTSIDE RECORDS SUMMARY | 2024-11-12 13:57 | XMS_ITS | Continuity of Care Document ---
Author Organization [facility] Address [address] [place] [address] [address] [place] [phone] Phone Care Team Providers Care Shroud Line Tier Name Role Phone Adriana Strong MD, FACS, RVT Unavailable Unavailable Advance Directives Directive Yes / No Effective Date File Name No Information Encounters Encounter Description Practice Location Reason(s) For Visit Diagnoses Date Provider Providers Copied on Encounter [facility], [address] [facility] [address], [place], [id number], tel:[phone] [facility] No Information [employer]. [address] [place] [address], [address], . tel:[phone] Family History Family Member Type Diagnosis Age [...]
== END 2024-11-12 13:33 | disposition home or self-care (01) ==
PROVIDERS: PCP Student in an Organized Health Care Education/Training Program; Visit Provider Urology
DX: R35.0 Frequency of micturition (principal); N43.3 Hydrocele, unspecified; N52.9 Male erectile dysfunction, unspecified; E29.1 Testicular hypofunction
CPT/HCPCS: 99024

== ENCOUNTER → 2024-11-12 13:03 | Outpatient (BNVA) | payer MEDICARE, SELFPAY | PROVIDERS: PCP Student in an Organized Health Care Education/Training Program; Visit Provider Urology | DX: N43.3 Hydrocele, unspecified (principal); N52.9 Male erectile dysfunction, unspecified; R35.0 Frequency of micturition; E29.1 Testicular hypofunction | CPT/HCPCS: 99212 ==

== ENCOUNTER 2025-04-01 09:32 | Outpatient (REF) | payer MEDICARE, SELFPAY ==
--- OUTSIDE RECORDS SUMMARY | 2022-09-21 07:21 | XMS_ITS | Continuity of Care Document ---
Author Organization [facility] Address [address] [place] [address] [address] [place] [phone] Phone Care Team Providers Care Unit Director Name Role Phone Adriana Strong MD, FACS, RVT Unavailable Unavailable Advance Directives Directive Yes / No Effective Date File Name No Information Encounters Encounter Description Practice Location Reason(s) For Visit Diagnoses Date Provider Providers Copied on Encounter [facility], [address] [place] [address] [address], [place], [id number], tel:[phone] [facility] No Information 2 [employer]. [address] [place] [address], [address], . tel:[phone] Family History Family Member Type Diagnosis Age At Onset No Information Payers Payer name Insurance type Covered democrat ID Authoriza tion(s) No Information Social History [...]
--- OUTSIDE RECORDS SUMMARY | 2025-04-01 10:05 | XMS_ITS | Clinical Summary ---
Author Organization [facility] ity Address [address] [place] [address] Care Team Providers Care Manager Pmo Name Role Phone Unavailable Primary Care Provider [...] 2023-2 5 season) 2024 Influenza Vaccine (#1) 2025 RSV Immunization Adult Patie nts (1 - 1-dose 75+ series) 2039 HIB [...] age to complete this topic Meningococcal B Vaccine Aged Out No l onger eligible based on patient's age to complete this topic RSV Immunization Patients Un whitney 20 months Aged Out No longer eligible b ased on patient's age to complete this topic Varicella Vaccines Aged Out No longer eligible based on patient's age to complete this topic
[2025-04-01 12:27] LABS: Alanine Aminotransferase 29 U/L (0-40); Albumin Level 3.9 g/dL (3.5-5.0); Alkaline Phosphatase 87 U/L (39-117); Anion Gap 12 (12-20); Aspartate Amino Transferase 36 U/L (5-37); Blood Urea Nitrogen 14 mg/dL (9-16); Calcium 9.3 mg/dL (8.4-10.2); Carbon Dioxide 31 mmol/L (22-29); Chloride 99 mmol/L (96-108); Cholesterol 173 mg/dL (<200); Estimated Glomerular Filt Rate > 60; Ferritin 186 ng/mL (20-250); HDL Cholesterol 28 mg/dL (>40); Iron 57 mcg/dL (45-160); Percent Iron Saturation 21 % (15-50); Potassium 3.0 mmol/L (3.3-5.1); Sodium 139 mmol/L (135-145); Total Iron Binding Capacity 271 mcg/dL (228-428); Total Protein 7.3 g/dL (6.5-8.0); Triglycerides 288 mg/dL (<150); Unsaturated Iron Binding 214 ug/dL
[2025-04-01 13:55] LABS: Reflex LDLD? No
[2025-04-02 15:03] LABS: HIV RNA PCR Qn Copies 153 copies/mL (NOT DETECTED); HIV RNA PCR Qn Log Copies 2.18 (NOT DETECTED)
[2025-04-03 08:34] LABS: Hepatitis B Viral DNA Qn - cp NOT DETECTED Log IU/mL (NOT DETECTED); Hepatitis B Viral DNA Qn-IU/mL NOT DETECTED (NOT DETECTED)
== END 2025-04-01 09:33 | disposition home or self-care (01) ==
LOC: HO.HHCL 09:32
PROVIDERS: PCP Student in an Organized Health Care Education/Training Program; Visit Provider Student in an Organized Health Care Education/Training Program
DX: B20 Human immunodeficiency virus [HIV] disease (principal)
CPT/HCPCS: 36415; 80053; 80061; 82728; 83540; 86787; 87517; 87536

== ENCOUNTER 2025-04-27 13:19 | Outpatient (RCR) | payer MEDICARE, MEDICAID, SELFPAY | END 2025-05-05 16:50 | disposition home or self-care (01) | LOC: HO.WCC 13:19 | PROVIDERS: Visit Provider Surgery Surgical Oncology | DX: S80.812A Abrasion, left lower leg, initial encounter (principal); B18.2 Chronic viral hepatitis C; I10 Essential (primary) hypertension; B20 Human immunodeficiency virus [HIV] disease; F17.210 Nicotine dependence, cigarettes, uncomplicated; G62.9 Polyneuropathy, unspecified | CPT/HCPCS: 97597; 99212 ==

== ENCOUNTER 2025-05-12 10:19 | Outpatient (AMB) | payer MEDICARE, SELFPAY ==
--- OUTSIDE RECORDS SUMMARY | 2022-09-21 07:21 | XMS_ITS | Continuity of Care Document ---
Author Organization [facility] Address [address] [place] [address] [address] [place] [phone] Phone Care Team Providers Care Voltmeter Operator Name Role Phone Adriana Strong MD, FACS, RVT Unavailable Unavailable Advance Directives Directive Yes / No Effective Date File Name No Information Encounters Encounter Description Practice Location Reason(s) For Visit Diagnoses Date Provider Providers Copied on Encounter [facility], [address] [place] [address] [address], [place], [id number], tel:[phone] [facility] No Information 2 [employer]. [address] [place] [address], [address], . tel:[phone] Family History Family Member Type Diagnosis Age At Onset No Information Payers Payer name Insurance type Covered republican ID Authoriza tion(s) No Information Social History [...]
--- NOTE | 2025-05-12 10:23 | A.OFFVIS_ITS ---
Intake Visit Reasons: 6m Follow up Intake Note: Patient is present for 6M/F/U Urology Medication:SILDENAFIL Antibiotic Allergy:NONE Blood Thinner:NONE Corn Cooker Required: No Allergies No Known Allergies (No Known Allergies*) Allergy (Verified 05/12/25 12:33) Medication List - Last Reconciled 05/12/25 by HARMAN Lacey-MIRANDA dnoxydbbm-xaagsztr-nmyosjz ala 50-200-25 mg (Biktarvy) 1 tab PO DAILY blood pressure test kit-large As directed bumetanide 1 mg PO DAILY chlorhexidine gluconate 0.12% mL PO ibuprofen 800 mg PO TID PRN ipratropium-albuterol 20-100 mcg/actuation (Combivent Respimat) 1 puff inhalation DAILY methadone 110 mg PO DAILY naloxone 4 mg/actuation ea intranasal rosuvastatin 20 mg PO DAILY sildenafil (Viagra) 100 mg PO DAILY PRN 90 days testosterone 2 pumps topical DAILY 30 days umeclidinium-vilanterol 62.5-25 mcg/actuation (Anoro Ellipta) 1 ea inhalation DAILY HPI Comments Details: Julian is a very pleasant 59-year-old male patient of Dr. Yasmany Valiente. He has a past medical history of depression, peripheral edema, COPD, hyperlipidemia, hypertension, hepatitis-C, HIV, and nicotine dependence. In discussion with the patient today reports to be doing and feeling well. Of note, patient underwent left-sided hydrocelectomy with Dr. Jensen 10/17 and has since had no issues or concerns regarding testicular swelling or infection. He reports feeling scrotum is back to normal size. He does continue to experience erectile dysfunction. We did discuss previous labs noting hypogonadism. We did discussed further treatment options of ED as well as hypogonadism and risks and benefits of these treatment options. He would like to attempt testosterone replacement at this time. 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 He does report noting episodes of urinary frequency however relates this to his diuretic. He otherwise denies incontinence, nocturia, hematuria, dysuria, foul smelling urine, changes to urinary stream, flank pain, fever, and or chills. In office urinalysis results reviewed with the patient today. He otherwise offers no other issues or concerns at this time. [facility] Medical History Methadone maintenance therapy patient Colon polyps Depression Peripheral edema COPD (chronic obstructive pulmonary disease) Hyperlipidemia Hypertension, essential Hepatitis C HIV (human immunodeficiency virus infection) Nicotine dependence, cigarettes, uncomplicated Surgical History History of colonoscopy Social History Patient Tobacco Use Status: Current everyday Tobacco user Tobacco use type: Cigarette and Smokeless Tobacco Cigarette Packs Per Day: 1 Cigarettes Per Day: 20 Review of Systems Eyes Reports no additional complaints ENT Reports no additional complaints Card Reports as per HPI Resp Reports as per HPI GI Reports no additional complaints Reports as per HPI Musc Reports no additional complaints Neuro Reports as per HPI Psych Reports as per HPI Endo Reports no additional complaints Juan Ramon/Lymph Reports as per HPI Aller/Immun Reports no additional complaints Physical Exam Const General: cooperative, comfortable, no acute distress, well developed, alert and awake Orientation/consciousness: patient oriented x3 Limitations: no limitations HEENT Head: Yes normal to inspection, Yes normocephalic and Yes atraumatic Ears: hearing grossly normal bilaterally Eyes General: appearance normal, both eyes and all related structures Neck Neck: Yes normal visual inspection and Yes trachea midline Chest Chest palpation & inspection: normal inspection of the chest Resp Effort & Inspection: normal respiratory effort and able to speak in complete sentences Cardio Rate: regular rate GI Inspection: Yes normal to inspection General: Yes no CVA tenderness Back/Spine/Pelvis Back: no CVA tenderness Skin General skin exam: no rashes or lesions noted Neuro General: patient oriented x3 Extrem General: Yes normal to inspection Psych Appearance: grossly normal and well kempt Mental Status: mental status grossly normal Speech and movement: Normal speech and movement present and Clear speech present Affect: normal affect Attitude: cooperative Thought process: Normal thought process present Thought content: Normal thought content present Insight: Fair insight present (Psych) Judgement: Fair judgement present (Psych) Results AMB Urinalysis, Automated UA Leukoctes 0 Cady/uL Last Edit by JHON Bright on 05/12/25 12:29 UA Nitrite Negative Last Edit by Nancy Matta [facility] on 05/12/25 12:29 UA Urobilinogen 1 mg/dL Last Edit by Nancy Matta [facility] on 05/12/25 12:29 UA Protein 0 mg/dL Last Edit by Nancy Matta [facility] on 05/12/25 12:29 UA pH 6.0 Last Edit by Nancy Matta [facility] on 05/12/25 12:29 UA Blood 0 Robe/uL Last Edit by Nancy Matta [facility] on 05/12/25 12:29 UA Specific Mission 1.015 Last Edit by Nancy Matta [facility] on 05/12/25 12: 29 UA Ketone Negative Last Edit by Nancy Matta [facility] on 05/12/25 12:29 UA Bilirubin 0 mg/dL Last Edit by Nancy Matta [facility] on 05/12/25 12:29 UA Glucose 0 mg/dL Last Edit by Nancy Matta [facility] on 05/12/25 12:29 Results Reviewed Results Reviewed: Laboratory Last Values Urine pH (Auto) 6.0 05/12/25 11:13 Specific Mission (Auto) 1.015 05/12/25 11:13 Urine Protein (Auto) 0 mg/dL 05/12/25 11:13 Glucose (UA)(Auto) 0 mg/dL 05/12/25 11:13 Urine Ketones (Auto) Negative 05/12/25 11:13 Urine Blood (Auto) 0 Robe/uL 05/12/25 11:13 Urine Nitrite (Auto) Negative 05/12/25 11:13 Urine Bilirubin (Auto) 0 mg/dL 05/12/25 11:13 Urine Urobilinogen (Auto) 1 mg/dL 05/12/25 11:13 Leukocyte Esterase (Auto) 0 Cady/uL 05/12/25 11:13 Assessment & Plan Assessment & Plan (1) Hypogonadism in male: Code(s): E29.1 - Testicular hypofunction Category: Medical (2) Erectile dysfunction: Code(s): N52.9 - Male erectile dysfunction, unspecified Category: Medical Plan In office urinalysis results reviewed with the patient today; as noted above. We did discuss further treatment options of erectile dysfunction as well as hypogonadism and risks and benefits of these interventions. All questions were answered. Start testosterone as discussed and prescribed. He currently denies any bothersome urinary issues. He reports be happy with current voiding parameters. Will obtain CBC, PSA, and testosterone free and total in 3 months. We also discussed importance of lifestyle modifications to assist with ED as well as hypogonadism. Follow-up in 3 months with labs to be completed prior; or sooner with any issues, concerns, and or questions. Orders: Orders AMB Urinalysis Automated Today Z13.9 - Encounter for screening, unspecified Prostate Specific Antigen 3 Months E29.1 - Testicular hypofunction Testosterone, Free/Total 3 Months E29.1 - Testicular hypofunction Complete Blood Count no Diff 3 Months E29.1 - Testicular hypofunction Medications: New testosterone apply 2 pumps over max area - alternate shoulders on alternate days 2 pumps topical DAILY 75 grams 3RF 30 days E29.1 - Testicular hypofunction, R79.89 - Other specified abnormal findings of blood chemistry Patient Instructions: The patient had an opportunity to ask questions regarding the treatment plan. All questions were answered. Physical exam, labs, and imaging were discussed and reviewed in detail. As well as risks, benefits, and discussion of treatment choices. No major barriers to understanding were identified. The patient expressed understanding and agreement with the above treatment plan. The patient was made aware they should contact our office by phone for worsening of their current condition, the appearance of new symptoms, or with any questions or concerns. Compliance is encouraged with any medications and follow up testing that is ordered. It is a privilege to be allowed the opportunity to participate in? your urological care.? Again, if you have any questions or concerns If you have any questions or concerns please do not hesitate to contact me. The office is [phone]. This note is constructed using voice recognition software. While every effort has been made to ensure accuracy management internship errors may have been included. Yours sincerely, NAS Lacey Coding Level of Care Code Est Pt Level 4 (03895) Complex EM visit Add On G2211 Diagnoses Hypogonadism in male E29.1 Erectile dysfunction N52.9
--- OUTSIDE RECORDS SUMMARY | 2025-05-12 11:33 | XMS_ITS | Clinical Summary ---
Author Organization [facility] Address [address] [place] [address] Phone Care Team Providers Care Surplus Property Disposal Agent Name Role Phone Physician, No Pcp Primary Care Provider Unavaila ble Allergies No known active allergies Encounters Date Type Department Care Team Description 04/01/2025 7:14 PM EDT - 04/02/2025 12:[address] [facility] Emergency [address] [place] [address] Dalton Hemphill MD Low serum potassium (Primary Dx); Low magnesium level Discharge Disposition: Home or Self Care from Last 3 Months Social History Tobacco Use Types Packs/Day Years Used Date Smoking Tobacco: Unknown Tobacco Cessation:Counseling Given: Not Answered Sex and Gender Information Value Date Recorded Sex Assigned at Not on file Legal Sex Male 10:21 AM EST Gender Identity Not on file Sexual Orientation Not on file Obstetrics History Last Filed Vital Signs Vital Sign Reading Time Taken Comments Blood Pressure 150/72 04/01/2025 11:24 PM EDT Pulse 63 04/01/2025 11:24 PM EDT Temperature 36.4 C (97.5 F) 04/01/2025 11:24 PM EDT Respiratory Rate 20 04/01/2025 11:24 PM EDT Oxygen Saturation 96% 04/01/2025 11:24 PM EDT Inhaled Oxygen Concentration - - Weight 129 kg (285 lb) 04/01/2025 5:18 PM EDT Height 193 cm (6' 4 ) 04/01/2025 5:18 PM EDT Body Mass Index 34.69 04/01/2025 5:18 PM EDT Plan of Treatment Health Maintenance Due Date Last Done Comments DTaP,Tdap,and Td Vaccines (1 - Tdap) 1983 Zoster Vaccines (1 of 2) 2014 Pneumococcal Vaccine: 50+ Ye ars (2 of 2 - PPSV23) 08/20/2015 08/20/2014 COVID-19 Vaccine (1 - 2023-2 5 season) 2024 Depression Screening 09/23/2024 Cholesterol Screening (Lipid Panel) 04/02/2025 Colorectal Cancer Screening: Colonoscopy 04/02/2025 HIV Screening 04/02/2025 Hepatitis C Screening 04/02/2025 Social Influencers of Health Screening 04/02/2025 Influenza Vaccine (#1) 2025 08/20/2014 RSV Immunization Adult Patie nts (1 - [...] on patient's age to complete this topic Procedures Procedure Name Priority Date/Time Associated Diagnosis Comments ECG ANNOTATED 04/02/2025 ECG ANNOTATED 04/02/2025 ECG 12-LEAD STAT 04/01/2025 11:43 PM EDT POTASSIUM STAT 04/01/2025 10:53 PM EDT MAGNESIUM STAT 04/01/2025 10:53 PM EDT ECG 12-LEAD STAT 04/01/2025 6:57 PM EDT PHOSPHORUS Add-On 04/01/2025 5:16 PM EDT CBC WITH AUTO DIFFERENTIAL STAT 04/01/2025 5:16 PM EDT MAGNESIUM STAT 04/01/2025 5:16 PM EDT COMPREHENSIVE METABOLIC PANEL STAT 04/01/2025 5:16 PM EDT CBC AND DIFFERENTIAL STAT 04/01/2025 5:16 PM EDT from Last 3 Months Results * ECG-Annotated (04/02/2025) Only the most recent of2 resultswithin the time period is included. us Provider Onbase ECG ORDERABLES Final Result * ECG 12 lead (04/01/2025 11:43 PM EDT) Only the most recent of2 resultswithin the time period is included. Ventricular Rate ECG 64 BPM GEMUSE Atrial Rate 64 BPM GEMUSE P-R Interval 168 ms GEMUSE QRS Duration 90 ms GEMUSE Q-T Interval 462 ms GEMUSE QTc 476 ms GEMUSE P Wave [place] 22 degrees GEMUSE R [place] 18 degrees GEMUSE T [place] 27 degrees GEMUSE ECG Interpretation Normal sinus rhythm Nonspecific T wave abnormality Prolongation of QT interval When compared with ECG of 01-APR-2025 18:57, No significant change was found Confirmed by Yocasta DORSEY, AMBERLY ([id number]) on 04/03/2025 9:59:48 AM GEMUSE 04/01/2025 11:4 3 PM EDT 04/03/2025 9:59 AM EDT us Dalton Hemphill MD ECG ORDERABLES Final Resul t GEMUSE * (ABNORMAL) Potassium (04/01/2025 10:53 PM EDT) Pathologist [facility] [place] Potassium 3.2(L) 3.5 - 5.5 mmol/L LAB CHEMISTRY METHOD 04/01/2025 11:33 PM EDT [facility] Blood Venous blood specimen / Unknown Venipuncture / Unknown 04/01/2025 10:53 PM EDT 04/01/2025 11:14 PM EDT Dalton Hemphill MD LAB BLOOD ORDERABLES Final Result Performing Organization Address City/[facility]/ZIP Co de Phone Number [facility] [address] [place] [address], [place] [phone] * Magnesium (04/01/2025 10:53 PM EDT) Only the most recent of2 resultswithin the time period is included. Pathologist [facility] [place] Magnesium 2.0 1.9 - 2.6 mg/dL LAB CHEMISTRY METHOD 04/01/2025 11:33 PM EDT [facility] Blood Venous blood specimen / Unknown Venipuncture / Unknown 04/01/2025 10:53 PM EDT 04/01/2025 11:14 PM EDT Dalton Hemphill MD LAB BLOOD ORDERABLES Final Result Performing Organization Address [facility] Co de Phone Number [facility] [address] [place] [address], [place] [phone] * (ABNORMAL) CBC auto differential (04/01/2025 5:16 PM EDT) WBC 6.5 4.8 - 10.8 K/[facility] LAB HEMETOLOGY METHOD 04/01/2025 5:44 PM EDT [facility] RBC 4.90 4.50 - 5.50 M/[facility] LAB HEMETOLOGY METHOD 04/01/2025 5:44 PM EDT [facility] Hemoglobin 14.5 13.5 - 17.5 g/dL LAB HEMETOLOGY METHOD [facility] Hematocrit 44.2 42.0 - 54.0 % LAB HEMETOLOGY METHOD 04/01/2025 5:[facility] MCV 91.1 79.0 - 98.0 FL LAB HEMETOLOGY METHOD 04/01/2025 5:44 PM [facility] MCH 29.9 27.0 - 32.0 pcg LAB HEMETOLOGY METHOD 04/01/2025 5:[facility] MCHC 32.8 32.0 - 37.0 g/dL LAB HEMETOLOGY METHOD 04/01/2025 5:44 PM [facility] RDW 16.1(H) 11.0 - 15.0 % LAB HEMETOLOGY METHOD 04/01/2025 5:44 PM [facility] Platelets 200 130 - 400 K/mcL LAB HEMETOLOGY METHOD 04/01/2025 5:44 PM [facility] MPV 10.8 7.0 - 11.0 FL LAB HEMETOLOGY METHOD 04/01/2025 5:44 PM [facility] NRBC 0.0 <1.0 % LAB HEMETOLOGY METHOD 04/01/2025 5:44 PM [facility] NRBC Absolute 0.00 <0.10 K/mcL LAB HEMETOLOGY METHOD 04/01/2025 5:44 PM [facility] Neutrophils Relative 53.7 % LAB HEMETOLOGY METHOD 04/01[facility]2025 5:[facility] Lymphocytes Relative 28.7 % LAB HEMETOLOGY METHOD 04/01/2025 5:44 PM [facility] Monocytes Relative 11.5 % LAB HEMETOLOGY METHOD 04/01/2025 5:[facility] Eosinophils Relative 4.8 % LAB HEMETOLOGY METHOD 04/01/2025 5:44 PM EDT [facility] Basophils Relative 0.5 % LAB HEMETOLOGY METHOD 04/01/2025 5:44 PM EDT [facility] Immature Granulocytes Relative 0.8 % LAB HEMETOLOGY METHOD 04/01/2025 5:44 PM EDT [facility] Neutrophils Absolute 3.51 1.50 - 7.00 K/mcL LAB HEMETOLOGY METHOD 04/01/2025 5:44 PM EDT [facility] Lymphocytes Absolute 1.87 1.00 - 5.00 K/mcL LAB HEMETOLOGY METHOD 04/01/2025 5:44 PM EDT [facility] Monocytes Absolute 0.75 0.20 - 1.00 K/mcL LAB HEMETOLOGY METHOD 04/01/2025 5:44 PM EDT [facility] Eosinophils Absolute 0.31 0.00 - 0.50 K/mcL LAB HEMETOLOGY METHOD 04/01/2025 5:44 PM EDT [facility] Basophils Absolute 0.03 0.00 - 0.20 K/mcL LAB HEMETOLOGY METHOD 04/01/2025 5:44 PM EDT [facility] Immature Granulocytes Absolute 0.05(H) 0.00 - 0.03 K/mcL LAB HEMETOLOGY METHOD 04/01/2025 5:44 PM EDT [facility] Blood Venous blood specimen / Unknown Venipuncture / Unknown 04/01/2025 5:16 PM EDT 04/01/2025 5:40 PM EDT Dalton Hemphill MD LAB BLOOD ORDERABLES Final Result [facility] [address] [place] [address], * Phosphorus (04/01/2025 5:16 PM EDT) Phosphorus 3.3 2.5 - 4.5 mg/dL LAB CHEMISTRY METHOD 04/01/2025 8:42 PM EDT [facility] Blood Venous blood specimen / Unknown Venipuncture / Unknown 04/01/2025 5:16 PM EDT 04/01/2025 5:40 PM EDT Dalton Hemphill MD LAB BLOOD ORDERABLES Final Result [facility] [address] [place] [address], [place] [phone] * (ABNORMAL) Comprehensive metabolic panel (04/01/2025 5:16 PM EDT) [facility] Sodium 138 133 - 145 mmol/L LAB CHEMISTRY METHOD 04/01/2025 6:17 PM [facility] Potassium 3.2(L) 3.5 - 5.5 mmol/L LAB CHEMISTRY METHOD 04/01/2025 6:17 PM [facility] Chloride 100 96 - 110 mmol/L LAB CHEMISTRY METHOD 04/01/2025 6:17 PM [facility] CO2 31 21 - 32 mmol/L LAB CHEMISTRY METHOD 04/01/2025 6:17 PM [facility] Anion Gap 7 3 - 11 LAB CHEMISTRY METHOD 04/01/2025 6:17 PM [facility] Glucose 108(H) 70 - 100 mg/dL LAB CHEMISTRY METHOD 04/01/2025 6:17 PM [facility] BUN 14 5 - 25 mg/dL LAB CHEMISTRY METHOD 04/01/2025 6:17 PM [facility] Creatinine 1.14 0.70 - 1.30 mg/dL LAB CHEMISTRY METHOD 04/01/2025 6:17 PM [facility] eGFR 74 >=60 mL/min/1. 73m2 LAB CHEMISTRY METHOD 04/01/2025 6:17 PM EDT [facility] Comment:Calculation based on the Chronic Kidney Disease Epidemiology Collaboration (CKD-EPI) equation refit without adjustment for race. BUN/Creatinine Ratio 12.3 LAB CHEMISTRY METHOD 04/01/2025 6:17 PM EDT [facility] Calcium 9.4 8.5 - 10.5 mg/dL LAB CHEMISTRY METHOD 04/01/2025 6:17 PM T [facility] AST (SGOT) 20 10 - 42 unit/L LAB CHEMISTRY METHOD 04/01/2025 6:17 PM [facility] ALT (SGPT) 33 10 - 60 unit/L LAB CHEMISTRY METHOD 04/01/2025 6:17 PM [facility] Alkaline Phosphatase 100 42 - 121 unit/L LAB CHEMISTRY METHOD 04/01/2025 6:17 PM [facility] Total Protein 7.4 6.0 - 8.0 g/dL LAB CHEMISTRY METHOD 04/01/2025 6:17 PM [facility] Albumin 3.5 3.2 - 5.0 g/dL LAB CHEMISTRY METHOD 04/01/2025 6:17 PM [facility] Total Bilirubin 0.3 0.0 - 1.4 mg/dL LAB CHEMISTRY METHOD 04/01/2025 6:17 PM [facility] Blood Venous blood specimen / Unknown Venipuncture / Unknown 04/01/2025 5:16 PM EDT 04/01/2025 5:40 PM EDT us Dalton Hemphill MD LAB BLOOD ORDERABLES Final Result [facility] [address] [place] [address], [place] [phone] from Last 3 Months Insurance [employer] Care Teams Surplus Property Disposal Agent Relationship Specialty Start Date End Date Physician, No Pcp PCP - General 04/01/25
== END 2025-05-12 11:22 | disposition home or self-care (01) ==
LOC: HO.HUSH 10:20
PROVIDERS: PCP Student in an Organized Health Care Education/Training Program; Visit Provider Nurse Practitioner Family
DX: E29.1 Testicular hypofunction (principal); N52.9 Male erectile dysfunction, unspecified; Z13.9 Encounter for screening, unspecified
CPT/HCPCS: 99214; G2211

== ENCOUNTER → 2025-05-12 10:19 | Outpatient (BNVA) | payer MEDICARE, SELFPAY | PROVIDERS: PCP Student in an Organized Health Care Education/Training Program; Visit Provider Nurse Practitioner Family | DX: E29.1 Testicular hypofunction (principal); R79.89 Other specified abnormal findings of blood chemistry; N52.9 Male erectile dysfunction, unspecified | CPT/HCPCS: 81003; 99212 ==

== ENCOUNTER 2025-06-01 11:19 | Outpatient (REF) | payer MEDICARE, SELFPAY ==
[2025-06-01 13:09] LABS: MANUAL DIFF FLAG NO
[2025-06-01 13:18] LABS: Hematocrit 42.1 % (42.0-52.0); Hemoglobin 14.1 g/dl (14.0-18.0); Imm Gran Abs Auto 0.05 X10*3/uL (0.00-0.03); Imm Gran Pct Auto 0.7 % (0.0-0.4); Lymphocytes Absolute Auto 1.5 X10*3/uL (1.2-4.9); Mean Corpuscular HGB Conc 33.5 g/dl (31.0-36.0); Mean Corpuscular Hemoglobin 30.2 pg (27.0-33.0); Mean Corpuscular Volume 90.1 fL (80.0-98.0); NRBC Abs Auto 0.000 X10*3/uL (0.0-0.012); NRBC Pct Auto 0.0 /100WBC (0.0-0.2); Platelet Count 201 X10*3/uL (160-400); Red Blood Count 4.67 X10*6/uL (4.60-5.80); White Blood Count 6.8 X10*3/uL (4.8-10.8)
--- OUTSIDE RECORDS SUMMARY | 2025-06-01 13:44 | XMS_ITS | Clinical Summary ---
Author Organization [facility] Address [address] [place] [address] Phone Care Team Providers Care Magnetic Tester Name Role Phone Physician, No Pcp Primary Care Provider Unavaila ble Allergies No known active allergies Encounters Date Type Department Care Team Description 04/01/2025 7:14 PM EDT - 04/02/2025 12:23 AM EDT Emergency [facility] Emergency [address] [place] [address] Dalton Hemphill MD Low serum [...] (2 of 2 - PPSV23) 08/20/2015 08/20/2014 Depression Screening 09/23/2024 Cholesterol Screening (Lipid Panel) 04/02/2025 Colorectal Cancer Screening: Colonoscopy 04/02/2025 HIV Screening 04/02/2025 Hepatitis C Screening 04/02/2025 Social Influencers of Health Screening 04/02/2025 COVID-19 Vaccine (1 - 2023-2 5 season) 2025 Influenza Vaccine (#1) 2025 08/20/2014 RSV Immunization [...] GEMUSE QTc 476 ms GEMUSE P Wave [place] 22 degrees GEMUSE R [place] 18 degrees GEMUSE T [place] 27 degrees GEMUSE ECG Interpretation Normal sinus [...] (ABNORMAL) Potassium (04/01/2025 10:53 PM EDT) Pathologist [facility] Potassium 3.2(L) 3.5 - 5.5 mmol/L LAB CHEMISTRY METHOD 04/01/2025 11:33 PM EDT [facility] Blood Venous blood specimen / Unknown Venipuncture / Unknown 04/01/2025 10:53 PM EDT 04/01/2025 11:14 PM EDT Dalton Hemphill MD LAB BLOOD ORDERABLES Final Result Performing Organization Address City/[facility]/ZIP Co de Phone Number [facility] [address] [place] [address], [place] [phone] * Magnesium (04/01/2025 10:53 PM EDT) Only the most recent of2 resultswithin the time period is included. Pathologist [facility] Magnesium 2.0 1.9 - 2.6 mg/dL LAB CHEMISTRY METHOD 04/01/2025 11:33 PM EDT [facility] Blood Venous blood specimen / Unknown Venipuncture / Unknown 04/01/2025 10:53 PM EDT 04/01/2025 11:14 PM EDT Dalton Hemphill MD LAB BLOOD ORDERABLES Final Result Performing Organization Address [facility] Co de Phone Number [facility] [address] [place] [address], [place] [phone] * (ABNORMAL) CBC auto differential (04/01/2025 5:16 PM EDT) WBC 6.5 4.8 - 10.8 K/[facility] LAB HEMETOLOGY METHOD 04/01/2025 5:44 PM EDT [facility] RBC 4.90 4.50 - 5.50 M/[facility] LAB HEMETOLOGY METHOD 04/01/2025 5:44 PM EDT [facility] Hemoglobin 14.5 13.5 - 17.5 g/dL LAB HEMETOLOGY METHOD 04/01[facility]25 [facility] Hematocrit 44.2 42.0 - 54.0 % LAB HEMETOLOGY METHOD 04/01/2025 5:[facility] MCV 91.1 79.0 - 98.0 FL LAB HEMETOLOGY METHOD 04/01/2025 5:[address] [facility] MCH 29.9 27.0 - 32.0 pcg LAB HEMETOLOGY METHOD 04/01/2025 5:44 [facility] MCHC 32.8 32.0 - 37.0 g/dL LAB HEMETOLOGY METHOD 04/01/2025 5:[address] [facility] RDW 16.1(H) 11.0 - 15.0 % LAB HEMETOLOGY METHOD 04/01/2025 5:[address] [facility] Platelets 200 130 - 400 K/mcL LAB HEMETOLOGY METHOD 04/01/2025 5:[address] [facility] MPV 10.8 7.0 - 11.0 FL LAB HEMETOLOGY METHOD 04/01/2025 5:[address] [facility] NRBC 0.0 <1.0 % LAB HEMETOLOGY METHOD 04/01/2025 5:[address] [facility] NRBC Absolute 0.00 <0.10 K/mcL LAB HEMETOLOGY METHOD 04/01/2025 5:[address] [facility] Neutrophils Relative 53.7 % LAB HEMETOLOGY METHOD 04/01/2025 5:44 [facility] Lymphocytes Relative 28.7 % LAB HEMETOLOGY METHOD 04/01/2025 5:[address] [facility] Monocytes Relative 11.5 % LAB HEMETOLOGY METHOD 04/01/2025 5:44 [facility] Eosinophils Relative 4.8 % LAB HEMETOLOGY METHOD 04/01/2025 5:44 PM EDT [facility] Basophils Relative 0.5 % LAB HEMETOLOGY METHOD 04/01/2025 5:44 PM EDT [facility] Immature Granulocytes Relative 0.8 % LAB HEMETOLOGY METHOD 04/01/2025 5:44 PM EDT [facility] Neutrophils Absolute 3.51 1.50 - 7.00 K/mcL LAB HEMETOLOGY METHOD 04/01/2025 5:44 PM EDT [facility] Lymphocytes Absolute 1.87 1.00 - 5.00 K/mcL LAB HEMETOLOGY METHOD 04/01/2025 5:44 PM EDT [facility] Monocytes Absolute 0.75 0.20 - 1.00 K/mcL LAB HEMETOLOGY METHOD 04/01/2025 5:44 PM EDT [facility] Eosinophils Absolute 0.31 0.00 - 0.50 K/mcL LAB HEMETOLOGY METHOD 04/01/2025 5:44 PM EDT [facility] Basophils Absolute 0.03 0.00 - 0.20 K/mcL LAB HEMETOLOGY METHOD 04/01/2025 5:44 PM EDT [facility] Immature Granulocytes Absolute 0.05(H) 0.00 - 0.03 K/mcL LAB HEMETOLOGY METHOD 04/01/2025 5:44 PM EDT [facility] Blood Venous blood specimen / Unknown Venipuncture / Unknown 04/01/2025 5:16 PM EDT 04/01/2025 5:40 PM EDT Dalton Hemphill MD LAB BLOOD ORDERABLES Final Result [facility] [address] [place] [address], * Phosphorus (04/01/2025 5:16 PM EDT) Phosphorus 3.3 2.5 - 4.5 mg/dL LAB CHEMISTRY METHOD 04/01/2025 8:42 PM EDT [facility] Blood Venous blood specimen / Unknown Venipuncture / Unknown 04/01/2025 5:16 PM EDT 04/01/2025 5:40 PM EDT Dalton Hemphill MD LAB BLOOD ORDERABLES Final Result [facility] [address] [place] [address], [place] [phone] * (ABNORMAL) Comprehensive metabolic panel (04/01/2025 5:16 PM EDT) [facility] Sodium 138 133 - 145 mmol/L LAB CHEMISTRY METHOD 04/01/2025 6:[address] [facility] Potassium 3.2(L) 3.5 - 5.5 mmol/L LAB CHEMISTRY METHOD 04/01/2025 6:[address] [facility] Chloride 100 96 - 110 mmol/L LAB CHEMISTRY METHOD 04/01/2025 6:[address] [facility] CO2 31 21 - 32 mmol/L LAB CHEMISTRY METHOD 04/01/2025 6:[address] [facility] Anion Gap 7 3 - 11 LAB CHEMISTRY METHOD 04/01/2025 6:[address] [facility] Glucose 108(H) 70 - 100 mg/dL LAB CHEMISTRY METHOD 04/01/2025 6:[address] [facility] BUN 14 5 - 25 mg/dL LAB CHEMISTRY METHOD 04/01/2025 6:[address] [facility] Creatinine 1.14 0.70 - 1.30 mg/dL LAB CHEMISTRY METHOD 04/01/2025 6:[address] [facility] eGFR 74 >=60 mL/min/1. 73m2 LAB CHEMISTRY METHOD 04/01/2025 6:17 PM EDT [facility] Comment:Calculation based on the Chronic Kidney Disease Epidemiology Collaboration (CKD-EPI) equation refit without adjustment for race. BUN/Creatinine Ratio 12.3 LAB CHEMISTRY METHOD 04/01/2025 6:17 PM EDT [facility] Calcium 9.4 8.5 - 10.5 mg/dL LAB CHEMISTRY METHOD 04/01/2025 6:17 PM T [facility] AST (SGOT) 20 10 - 42 unit/L LAB CHEMISTRY METHOD 04/01/2025 6:[address] [facility] ALT (SGPT) 33 10 - 60 unit/L LAB CHEMISTRY METHOD 04/01/2025 6:[address] [facility] Alkaline Phosphatase 100 42 - 121 unit/L LAB CHEMISTRY METHOD 04/01/2025 6:[address] [facility] Total Protein 7.4 6.0 - 8.0 g/dL LAB CHEMISTRY METHOD 04/01/2025 6:[address] [facility] Albumin 3.5 3.2 - 5.0 g/dL LAB CHEMISTRY METHOD 04/01/2025 6:[address] [facility] Total Bilirubin 0.3 0.0 - 1.4 mg/dL LAB CHEMISTRY METHOD 04/01/2025 6:[address] [facility] Blood Venous blood specimen / Unknown Venipuncture / Unknown 04/01/2025 5:16 PM EDT 04/01/2025 5:40 PM EDT us Dalton Hemphill MD LAB BLOOD ORDERABLES Final Result [facility] [address] [place] [address], [place] [phone] from Last 3 Months Insurance [employer] Care Teams Magnetic Tester Relationship Specialty Start Date End Date Physician, No Pcp PCP - General 04/01/25
[2025-06-01 13:52] LABS: Alanine Aminotransferase 22 U/L (0-40); Albumin Level 4.0 g/dL (3.5-5.0); Alkaline Phosphatase 91 U/L (39-117); Anion Gap 13 (12-20); Aspartate Amino Transferase 24 U/L (5-37); Blood Urea Nitrogen 16 mg/dL (9-16); Calcium 9.0 mg/dL (8.4-10.2); Carbon Dioxide 28 mmol/L (22-29); Chloride 105 mmol/L (96-108); Estimated Glomerular Filt Rate > 60; Magnesium 1.9 mg/dL (1.6-2.6); Potassium 3.6 mmol/L (3.3-5.1); Sodium 142 mmol/L (135-145); Total Protein 7.2 g/dL (6.5-8.0)
[2025-06-02 14:49] LABS: HIV RNA PCR Qn Copies 188 copies/mL (NOT DETECTED); HIV RNA PCR Qn Log Copies 2.27 (NOT DETECTED)
[2025-06-05 15:03] LABS: Absolute CD3 Count 906 cells/uL (840-3060); Absolute CD8 Count 397 cells/uL (180-1170); Percent CD3 Cells 60 % (57-85); Percent CD8 Cells 26 % (12-42)
== END 2025-06-01 11:20 | disposition home or self-care (01) ==
LOC: HO.HHCL 11:19
PROVIDERS: General Practice; PCP Student in an Organized Health Care Education/Training Program; Visit Provider Student in an Organized Health Care Education/Training Program
DX: E87.6 Hypokalemia (principal); B20 Human immunodeficiency virus [HIV] disease
CPT/HCPCS: 36415; 80053; 83735; 85025; 86359; 86360; 87536

== ENCOUNTER 2025-06-07 11:25 | Outpatient (REF) | payer MEDICARE, SELFPAY ==
--- NOTE | ~2025-06-07 | MM_ITS ---
EXAMINATION: DXA BONE DENSITY AXIAL HISTORY: HIV, OSTEOPOROSIS, HEAVY TOBACCO SMOKER TECHNIQUE: [place] Dual energy absorptiometry (DEXA) of the lumbar spine, total left hip, and femoral neck was performed. COMPARISON: There are no prior studies for comparison. FINDINGS: The bone mineral density of the lumbar spine is 1.688 g/cm2, corresponding to a T-score of 3.6, and a Z-score of 3.3. This is indicative of normal bone mineral density. The bone mineral density of the left total hip is 1.298 g/cm2, corresponding to a T-score of 1.4, and a Z-score of 1.4. This is indicative of normal bone mineral density. The bone mineral density of the left femoral neck is 1.332 g/cm2, corresponding to a T-score of 2.0, and a Z-score of 2.5. This is indicative of normal bone mineral density. MM/XR DEXA axial skeleton IMPRESSION: Based on bone mineral density, and according to World Health Organization (WHO) criteria, the diagnosis is consistent with normal bone mineral density. Statistically, 68% of repeat scans fall within 1 SD (+/- 0.010 g/cm2 for AP spine L1-L4) and 1 SD (+/- 0.012 g/cm2 for femur total) [employer] is a trademark of the [employer] [place] [facility] Metabolic Bone Disease, a World Health Organization (WHO) Collaborating Center. Electronically signed by: Karthik Vega MD 06/07/2025 12:12 PM EDT
--- OUTSIDE RECORDS SUMMARY | 2025-06-07 15:42 | XMS_ITS | Clinical Summary ---
Author Organization [facility] Address [address] [place] [address] Phone Care Team Providers Care Batterboard Setter Name Role Phone Physician, No Pcp Primary Care Provider Unavaila ble Allergies No known active allergies Encounters Date Type Department Care Team Description 04/01/2025 7:14 PM EDT - 04/02/2025 12:[address] [facility] Emergency [address] [place] [address] Dalton Hemphill MD Low serum [...] GEMUSE QTc 476 ms GEMUSE P Wave [place] 22 degrees GEMUSE R [place] 18 degrees GEMUSE T [place] 27 degrees GEMUSE ECG Interpretation Normal sinus [...] (ABNORMAL) Potassium (04/01/2025 10:53 PM EDT) Pathologist [facility] Potassium 3.2(L) 3.5 - 5.5 mmol/L LAB CHEMISTRY METHOD 04/01/2025 11:33 PM EDT [facility] Blood Venous blood specimen / Unknown Venipuncture / Unknown 04/01/2025 10:53 PM EDT 04/01/2025 11:14 PM EDT Dalton Hemphill MD LAB BLOOD ORDERABLES Final Result Performing Organization Address City/[facility]/ZIP Co de Phone Number [facility] [address] [place] [address], [place] [phone] * Magnesium (04/01/2025 10:53 PM EDT) Only the most recent of2 resultswithin the time period is included. Pathologist [facility] Magnesium 2.0 1.9 - 2.6 mg/dL LAB CHEMISTRY METHOD 04/01/2025 11:33 PM EDT [facility] Blood Venous blood specimen / Unknown Venipuncture / Unknown 04/01/2025 10:53 PM EDT 04/01/2025 11:14 PM EDT Dalton Hemphill MD LAB BLOOD ORDERABLES Final Result Performing Organization Address [facility] Co de Phone Number [facility] [address] [place] [address], [place] [phone] * (ABNORMAL) CBC auto differential (04/01/2025 5:16 PM EDT) WBC 6.5 4.8 - 10.8 K/[facility] LAB HEMETOLOGY METHOD 04/01/2025 5:44 PM EDT [facility] RBC 4.90 4.50 - 5.50 M/[facility] LAB HEMETOLOGY METHOD 04/01/2025 5:44 PM EDT [facility] Hemoglobin 14.5 13.5 - 17.5 g/dL LAB HEMETOLOGY METHOD 04/01/2025 5:[facility] Hematocrit 44.2 42.0 - 54.0 % LAB HEMETOLOGY METHOD 04/01/2025 5:44 [facility] MCV 91.1 79.0 - 98.0 FL LAB HEMETOLOGY METHOD 04/01/2025 5:44 PM [facility] MCH 29.9 27.0 - 32.0 pcg LAB HEMETOLOGY METHOD 04/01/2025 5:44 PM [facility] MCHC 32.8 32.0 - 37.0 g/dL LAB HEMETOLOGY METHOD 04/01/2025 5:44 PM [facility] RDW 16.1(H) 11.0 - 15.0 % LAB HEMETOLOGY METHOD 04/01/2025 5:44 PM [facility] Platelets 200 130 - 400 K/mcL LAB HEMETOLOGY METHOD 04/01/2025 5:44 PM [facility] MPV 10.8 7.0 - 11.0 FL LAB HEMETOLOGY METHOD 04/01/2025 5:44 PM [facility] NRBC 0.0 <1.0 % LAB HEMETOLOGY METHOD 04/01/2025 5:44 PM [facility] NRBC Absolute 0.00 <0.10 K/mcL LAB HEMETOLOGY METHOD 04/01/2025 5:44 PM [facility] Neutrophils Relative 53.7 % LAB HEMETOLOGY METHOD 04/01/2025 5:44 PM [facility] Lymphocytes Relative 28.7 % LAB HEMETOLOGY METHOD 04/01/2025 5:44 PM [facility] Monocytes Relative 11.5 % LAB HEMETOLOGY METHOD 04/01/2025 5:44 PM [facility] Eosinophils Relative 4.8 % LAB HEMETOLOGY METHOD 04/01/2025 5:44 PM EDT [facility] Basophils Relative 0.5 % LAB HEMETOLOGY METHOD 04/01/2025 5:44 PM EDT [facility] Immature Granulocytes Relative 0.8 % LAB HEMETOLOGY METHOD 04/01/2025 5:44 PM EDT [facility] Neutrophils Absolute 3.51 1.50 - 7.00 K/mcL LAB HEMETOLOGY METHOD 04/01/2025 5:44 PM EDT [facility] Lymphocytes Absolute 1.87 1.00 - 5.00 K/mcL LAB HEMETOLOGY METHOD 04/01/2025 5:44 PM EDT [facility] Monocytes Absolute 0.75 0.20 - 1.00 K/mcL LAB HEMETOLOGY METHOD 04/01/2025 5:44 PM EDT [facility] Eosinophils Absolute 0.31 0.00 - 0.50 K/mcL LAB HEMETOLOGY METHOD 04/01/2025 5:44 PM EDT [facility] Basophils Absolute 0.03 0.00 - 0.20 K/mcL LAB HEMETOLOGY METHOD 04/01/2025 5:44 PM EDT [facility] Immature Granulocytes Absolute 0.05(H) 0.00 - 0.03 K/mcL LAB HEMETOLOGY METHOD 04/01/2025 5:44 PM EDT [facility] Blood Venous blood specimen / Unknown Venipuncture / Unknown 04/01/2025 5:16 PM EDT 04/01/2025 5:40 PM EDT Dalton Hemphill MD LAB BLOOD ORDERABLES Final Result [facility] [address] [place] [address], * Phosphorus (04/01/2025 5:16 PM EDT) Phosphorus 3.3 2.5 - 4.5 mg/dL LAB CHEMISTRY METHOD 04/01/2025 8:42 PM EDT [facility] Blood Venous blood specimen / Unknown Venipuncture / Unknown 04/01/2025 5:16 PM EDT 04/01/2025 5:40 PM EDT Dalton Hemphill MD LAB BLOOD ORDERABLES Final Result [facility] [address] [place] [address], [place] [phone] * (ABNORMAL) Comprehensive metabolic panel (04/01/2025 5:16 PM EDT) [facility] Sodium 138 133 - 145 mmol/L LAB CHEMISTRY METHOD 04/01/2025 6:17 PM [facility] Potassium 3.2(L) 3.5 - 5.5 mmol/L LAB CHEMISTRY METHOD 04/01/2025 6:17 PM [facility] Chloride 100 96 - 110 mmol/L LAB CHEMISTRY METHOD 04/01/2025 6:17 PM [facility] CO2 31 21 - 32 mmol/L LAB CHEMISTRY METHOD 04/01/2025 6:17 PM [facility] Anion Gap 7 3 - 11 LAB CHEMISTRY METHOD 04/01/2025 6:17 PM [facility] Glucose 108(H) 70 - 100 mg/dL LAB CHEMISTRY METHOD 04/01/2025 6:17 PM [facility] BUN 14 5 - 25 mg/dL LAB CHEMISTRY METHOD 04/01/2025 6:17 PM [facility] Creatinine 1.14 0.70 - 1.30 mg/dL LAB CHEMISTRY METHOD 04/01/2025 6:17 PM [facility] eGFR 74 >=60 mL/min/1. 73m2 LAB CHEMISTRY METHOD 04/01/2025 6:17 PM EDT [facility] Comment:Calculation based on the Chronic Kidney Disease Epidemiology Collaboration (CKD-EPI) equation refit without adjustment for race. BUN/Creatinine Ratio 12.3 LAB CHEMISTRY METHOD 04/01/2025 6:17 PM EDT [facility] Calcium 9.4 8.5 - 10.5 mg/dL LAB CHEMISTRY METHOD 04/01/2025 6:17 PM T [facility] AST (SGOT) 20 10 - 42 unit/L LAB CHEMISTRY METHOD 04/01/2025 6:17 PM [facility] ALT (SGPT) 33 10 - 60 unit/L LAB CHEMISTRY METHOD 04/01/2025 6:17 PM [facility] Alkaline Phosphatase 100 42 - 121 unit/L LAB CHEMISTRY METHOD 04/01/2025 6:17 PM [facility] Total Protein 7.4 6.0 - 8.0 g/dL LAB CHEMISTRY METHOD 04/01/2025 6:17 PM [facility] Albumin 3.5 3.2 - 5.0 g/dL LAB CHEMISTRY METHOD 04/01/2025 6:17 PM [facility] Total Bilirubin 0.3 0.0 - 1.4 mg/dL LAB CHEMISTRY METHOD 04/01/2025 6:17 PM [facility] Blood Venous blood specimen / Unknown Venipuncture / Unknown 04/01/2025 5:16 PM EDT 04/01/2025 5:40 PM EDT us Dalton Hemphill MD LAB BLOOD ORDERABLES Final Result [facility] [address] [place] [address], [place] [phone] from Last 3 Months Insurance [employer] Care Teams Batterboard Setter Relationship Specialty Start Date End Date Physician, No Pcp PCP - General 04/01/25
== END 2025-06-07 11:26 | disposition home or self-care (01) ==
LOC: HO.MAMMO 11:25
PROVIDERS: PCP Student in an Organized Health Care Education/Training Program; Visit Provider Student in an Organized Health Care Education/Training Program
DX: Z13.820 Encounter for screening for osteoporosis (principal); B20 Human immunodeficiency virus [HIV] disease; F17.200 Nicotine dependence, unspecified, uncomplicated
CPT/HCPCS: 77080

== ENCOUNTER → 2025-06-07 11:30 | Outpatient (BNV) | payer MEDICARE, SELFPAY | PROVIDERS: PCP Student in an Organized Health Care Education/Training Program; Visit Provider Radiology Diagnostic Radiology | DX: M81.0 Age-related osteoporosis without current pathological fracture (principal); B20 Human immunodeficiency virus [HIV] disease; F17.200 Nicotine dependence, unspecified, uncomplicated | CPT/HCPCS: 77080 ==

== ENCOUNTER 2025-06-17 11:26 | Outpatient (REF) | payer MEDICARE, SELFPAY ==
[2025-06-17 14:03] LABS: Alanine Aminotransferase 20 U/L (0-40); Albumin Level 4.2 g/dL (3.5-5.0); Alkaline Phosphatase 77 U/L (39-117); Anion Gap 10 (12-20); Aspartate Amino Transferase 25 U/L (5-37); Blood Urea Nitrogen 13 mg/dL (9-16); Calcium 9.3 mg/dL (8.4-10.2); Carbon Dioxide 28 mmol/L (22-29); Chloride 106 mmol/L (96-108); Estimated Glomerular Filt Rate > 60; Magnesium 1.8 mg/dL (1.6-2.6); Potassium 4.0 mmol/L (3.3-5.1); Sodium 140 mmol/L (135-145); Total Protein 7.5 g/dL (6.5-8.0)
[2025-07-02 01:13] LABS: HIV 1 Integrase Proviral DNA DETECTED; HIV 1 PR RT Proviral DNA DETECTED
== END 2025-06-17 11:27 | disposition home or self-care (01) ==
LOC: HO.HHCL 11:26
PROVIDERS: PCP Student in an Organized Health Care Education/Training Program; Referring Provider General Practice; Visit Provider Student in an Organized Health Care Education/Training Program
DX: E87.6 Hypokalemia (principal); B20 Human immunodeficiency virus [HIV] disease
CPT/HCPCS: 36415; 80053; 83735; 87900; 87901; 87906

== ENCOUNTER 2025-06-21 10:44 | Outpatient (REF) | payer MEDICARE, SELFPAY ==
--- OUTSIDE RECORDS SUMMARY | 2025-06-21 12:13 | XMS_ITS | Clinical Summary ---
Author Organization [facility] Address [address] [place] [address] Phone Care Team Providers Care Inspector Outside Production Name Role Phone Physician, No Pcp Primary Care Provider Unavaila ble Allergies No known active allergies Encounters Date Type Department Care Team Description 04/01/2025 7:14 PM EDT - 04/02/2025 12:23 AM EDT Emergency [facility] [address] [place] [address] Dalton Hemphill MD Low serum [...] Health Maintenance Due Date Last Done Comments Colorectal Cancer Screening: Colonoscopy 1964 DTaP,Tdap,and Td Vaccines (1 - Tdap) 1983 Zoster Vaccines (1 of 2) 2014 Pneumococcal Vaccine: 50+ Ye ars (2 of 2 - PCV20 or PCV21) 08/20/2015 08/20/2014 Depression Screening 09/23/2024 Cholesterol Screening (Lipid Panel) 04/02/2025 HIV Screening 04/02/2025 Hepatitis C Screening [...] time period is included. us Provider Onbase MD ECG ORDERABLES Final Result * ECG 12 lead (04/01/2025 11:43 PM EDT) Only the most recent of2 resultswithin the time period is included. Ventricular Rate ECG 64 BPM GEMUSE Atrial Rate 64 BPM GEMUSE P-R Interval 168 ms GEMUSE QRS Duration 90 ms GEMUSE Q-T Interval 462 ms GEMUSE QTc 476 ms GEMUSE P Wave [place] 22 degrees GEMUSE R [place] 18 degrees GEMUSE T [place] 27 degrees GEMUSE ECG Interpretation Normal sinus [...] (ABNORMAL) Potassium (04/01/2025 10:53 PM EDT) Pathologist [facility] Potassium 3.2(L) 3.5 - 5.5 mmol/L LAB CHEMISTRY METHOD 04/01/2025 11:33 PM EDT [facility] Blood Venous blood specimen / Unknown Venipuncture / Unknown 04/01/2025 10:53 PM EDT 04/01/2025 11:14 PM EDT Dalton Hemphill MD LAB BLOOD ORDERABLES Final Result Performing Organization Address City/[facility]/ZIP Co de Phone Number [facility] [address] [place] [address], [place] [phone] * Magnesium (04/01/2025 10:53 PM EDT) Only the most recent of2 resultswithin the time period is included. Pathologist [facility] Magnesium 2.0 1.9 - 2.6 mg/dL LAB CHEMISTRY METHOD 04/01/2025 11:33 PM EDT [facility] Blood Venous blood specimen / Unknown Venipuncture / Unknown 04/01/2025 10:53 PM EDT 04/01/2025 11:14 PM EDT Daltno Hemphill MD LAB BLOOD ORDERABLES Final Result Performing Organization Address [facility] Co de Phone Number [facility] [address] [place] [address], [place] [phone] * (ABNORMAL) CBC auto differential (04/01/2025 5:16 PM EDT) WBC 6.5 4.8 - 10.8 K/[facility] LAB HEMETOLOGY METHOD 04/01/2025 5:44 PM EDT [facility] RBC 4.90 4.50 - 5.50 M/[facility] LAB HEMETOLOGY METHOD 04/01/2025 5:44 PM EDT [facility] Hemoglobin 14.5 13.5 - 17.5 g/dL LAB HEMETOLOGY METHOD 04/01/2025 5:44 PM [facility] Hematocrit 44.2 42.0 - 54.0 % LAB HEMETOLOGY METHOD 04/01/2025 5:44 PM [facility] MCV 91.1 79.0 - 98.0 FL LAB HEMETOLOGY METHOD 04/01/2025 5:44 PM [facility] MCH 29.9 27.0 - 32.0 pcg LAB HEMETOLOGY METHOD 04/01/2025 5:44 PM [facility] MCHC 32.8 32.0 - 37.0 g/dL LAB HEMETOLOGY METHOD 04/01/2025 5:44 PM [facility] RDW 16.1(H) 11.0 - 15.0 % LAB HEMETOLOGY METHOD 04/01/2025 5:44 PM [facility] Platelets 200 130 - 400 K/mcL LAB HEMETOLOGY METHOD 04/01/2025 5:44 PM [facility] MPV 10.8 7.0 - 11.0 FL LAB HEMETOLOGY METHOD 04/01/2025 5:44 PM [facility] NRBC 0.0 <1.0 % LAB HEMETOLOGY METHOD 04/01/2025 5:44 PM [facility] NRBC Absolute 0.00 <0.10 K/mcL LAB HEMETOLOGY METHOD 04/01/2025 5:44 PM [facility] Neutrophils Relative 53.7 % LAB HEMETOLOGY METHOD 04/01/2025 5:44 PM [facility] Lymphocytes Relative 28.7 % LAB HEMETOLOGY METHOD 04/01/2025 5:44 PM [facility] Monocytes Relative 11.5 % LAB HEMETOLOGY METHOD 04/01/2025 5:44 PM [facility] Eosinophils Relative 4.8 % LAB HEMETOLOGY METHOD 04/01/2025 5:44 PM EDT [facility] Basophils Relative 0.5 % LAB HEMETOLOGY METHOD 04/01/2025 5:44 PM EDT [facility] Immature Granulocytes Relative 0.8 % LAB HEMETOLOGY METHOD 04/01/2025 5:44 PM EDT [facility] Neutrophils Absolute 3.51 1.50 - 7.00 K/mcL LAB HEMETOLOGY METHOD 04/01/2025 5:44 PM EDT [facility] Lymphocytes Absolute 1.87 1.00 - 5.00 K/mcL LAB HEMETOLOGY METHOD 04/01/2025 5:44 PM EDT [facility] Monocytes Absolute 0.75 0.20 - 1.00 K/mcL LAB HEMETOLOGY METHOD 04/01/2025 5:44 PM EDT [facility] Eosinophils Absolute 0.31 0.00 - 0.50 K/mcL LAB HEMETOLOGY METHOD 04/01/2025 5:44 PM EDT [facility] Basophils Absolute 0.03 0.00 - 0.20 K/mcL LAB HEMETOLOGY METHOD 04/01/2025 5:44 PM EDT [facility] Immature Granulocytes Absolute 0.05(H) 0.00 - 0.03 K/mcL LAB HEMETOLOGY METHOD 04/01/2025 5:44 PM EDT [facility] Blood Venous blood specimen / Unknown Venipuncture / Unknown 04/01/2025 5:16 PM EDT 04/01/2025 5:40 PM EDT us Dalton Hemphill MD LAB BLOOD ORDERABLES Final Result [facility] [address] [place] [address], * Phosphorus (04/01/2025 5:16 PM EDT) Phosphorus 3.3 2.5 - 4.5 mg/dL LAB CHEMISTRY METHOD 04/01/2025 8:42 PM EDT [facility] Blood Venous blood specimen / Unknown Venipuncture / Unknown 04/01/2025 5:16 PM EDT 04/01/2025 5:40 PM EDT Dalton Hemphill MD LAB BLOOD ORDERABLES Final Result [facility] [address] [place] [address], [place] [phone] * (ABNORMAL) Comprehensive metabolic panel (04/01/2025 5:16 PM EDT) [facility] Sodium 138 133 - 145 mmol/L LAB CHEMISTRY METHOD 04/01/2025 6:17 PM [facility] Potassium 3.2(L) 3.5 - 5.5 mmol/L LAB CHEMISTRY METHOD 04/01/2025 6:17 PM [facility] Chloride 100 96 - 110 mmol/L LAB CHEMISTRY METHOD 04/01/2025 6:17 PM [facility] CO2 31 21 - 32 mmol/L LAB CHEMISTRY METHOD 04/01/2025 6:17 PM [facility] Anion Gap 7 3 - 11 LAB CHEMISTRY METHOD 04/01/2025 6:17 PM [facility] Glucose 108(H) 70 - 100 mg/dL LAB CHEMISTRY METHOD 04/01/2025 6:17 PM [facility] BUN 14 5 - 25 mg/dL LAB CHEMISTRY METHOD 04/01/2025 6:17 PM [facility] Creatinine 1.14 0.70 - 1.30 mg/dL LAB CHEMISTRY METHOD 04/01/2025 6:17 PM [facility] eGFR 74 >=60 mL/min/1. 73m2 LAB CHEMISTRY METHOD 04/01/2025 6:17 PM T [facility] Comment:Calculation based on the Chronic Kidney Disease Epidemiology Collaboration (CKD-EPI) equation refit without adjustment for race. BUN/Creatinine Ratio 12.3 LAB CHEMISTRY METHOD 04/01/2025 6:17 PM T [facility] Calcium 9.4 8.5 - 10.5 mg/dL LAB CHEMISTRY METHOD 04/01/2025 6:17 PM [facility] AST (SGOT) 20 10 - 42 unit/L LAB CHEMISTRY METHOD 04/01/2025 6:17 PM [facility] ALT (SGPT) 33 10 - 60 unit/L LAB CHEMISTRY METHOD 04/01/2025 6:17 PM [facility] Alkaline Phosphatase 100 42 - 121 unit/L LAB CHEMISTRY METHOD 04/01/2025 6:17 PM [facility] Total Protein 7.4 6.0 - 8.0 g/dL LAB CHEMISTRY METHOD 04/01/2025 6:17 PM [facility] Albumin 3.5 3.2 - 5.0 g/dL LAB CHEMISTRY METHOD 04/01/2025 6:17 PM [facility] Total Bilirubin 0.3 0.0 - 1.4 mg/dL LAB CHEMISTRY METHOD 04/01/2025 6:17 PM [facility] Blood Venous blood specimen / Unknown Venipuncture / Unknown 04/01/2025 5:16 PM EDT 04/01/2025 5:40 PM EDT us Dalton Hemphill MD LAB BLOOD ORDERABLES Final Result [facility] [address] [place] [address], [place] [phone] from Last 3 Months Insurance [employer] Care Teams Inspector Outside Production Relationship Specialty Start Date End Date Physician, No Pcp PCP - General 04/01/25
[2025-06-21 13:23] LABS: MANUAL DIFF FLAG NO
[2025-06-21 13:31] LABS: Hematocrit 45.7 % (42.0-52.0); Hemoglobin 15.7 g/dl (14.0-18.0); Imm Gran Abs Auto 0.03 X10*3/uL (0.00-0.03); Imm Gran Pct Auto 0.5 % (0.0-0.4); Lymphocytes Absolute Auto 1.7 X10*3/uL (1.2-4.9); Mean Corpuscular HGB Conc 34.4 g/dl (31.0-36.0); Mean Corpuscular Hemoglobin 30.8 pg (27.0-33.0); Mean Corpuscular Volume 89.6 fL (80.0-98.0); NRBC Abs Auto 0.000 X10*3/uL (0.0-0.012); NRBC Pct Auto 0.0 /100WBC (0.0-0.2); Platelet Count 234 X10*3/uL (160-400); Red Blood Count 5.10 X10*6/uL (4.60-5.80); White Blood Count 6.4 X10*3/uL (4.8-10.8)
[2025-06-21 13:58] LABS: Appearance Urine Clear; Glucose Urine UA Negative (Negative); PH 6.0 (5.0-9.0); Specific Gravity - Urine 1.020 (1.005-1.025)
[2025-06-21 14:08] LABS: Alanine Aminotransferase 24 U/L (0-40); Albumin Level 4.3 g/dL (3.5-5.0); Alkaline Phosphatase 78 U/L (39-117); Anion Gap 12 (12-20); Aspartate Amino Transferase 26 U/L (5-37); Blood Urea Nitrogen 12 mg/dL (9-16); Calcium 9.7 mg/dL (8.4-10.2); Carbon Dioxide 28 mmol/L (22-29); Chloride 105 mmol/L (96-108); Estimated Glomerular Filt Rate 56; Potassium 3.8 mmol/L (3.3-5.1); Sodium 141 mmol/L (135-145); Total Protein 7.8 g/dL (6.5-8.0)
[2025-06-21 14:41] LABS: Folate 5.3 ng/mL (> or = 4.0); Prostate Specific Antigen 0.15 ng/mL (<0.05-4.0); Vitamin B12 301 pg/mL (200-900)
[2025-06-24 07:54] LABS: TS Negative Control PASSED; TS Panel A 0; TS Panel B 0; TS Positive Control PASSED; TSpotTB Negative (NEGATIVE)
== END 2025-06-21 10:45 | disposition home or self-care (01) ==
LOC: HO.HHCL 10:44
PROVIDERS: General Practice; PCP Student in an Organized Health Care Education/Training Program; Visit Provider Student in an Organized Health Care Education/Training Program
DX: Z11.1 Encounter for screening for respiratory tuberculosis (principal); Z12.5 Encounter for screening for malignant neoplasm of prostate; R63.4 Abnormal weight loss; R53.83 Other fatigue
CPT/HCPCS: 36415; 80053; 81001; 82306; 82607; 82746; 83615; 84153; 84443; 85025; 85652; 86140; 86481

== ENCOUNTER 2025-06-22 10:35 | Outpatient (REF) | payer MEDICARE, SELFPAY ==
--- NOTE | ~2025-06-22 | XR_ITS ---
EXAMINATION: XR CHEST CLINICAL INFORMATION: reports night sweats ,fatigue,weight loss COMPARISON: Correlated to CT lung screening dated August 06, 2024. TECHNIQUE: PA and lateral views. FINDINGS: Prominence of the interstitial markings pronounced in the inferior right perihilar region. No gross consolidation pleural effusion or pneumothorax. No hyperinflation. Cardiomediastinal silhouette size is normal. Mild multilevel thoracic spondylosis. XR/XR chest 2V IMPRESSION: Concerning chronic interstitial lung disease. Opacity in the inferior right perihilar region may correspond to the pericardial cyst reported on the CT lung screening. Electronically signed by: Toby Dixon MD 06/22/2025 11:43 AM EDT
--- OUTSIDE RECORDS SUMMARY | 2025-06-22 11:50 | XMS_ITS | Clinical Summary ---
Author Organization [facility] Address [address] [place] [address] Phone Care Team Providers Care Laborer Starch Factory Name Role Phone Physician, No Pcp Primary Care Provider Unavaila ble Allergies No known active allergies Encounters Date Type Department Care Team Description 04/01/2025 7:14 PM EDT - 04/02/2025 12:23 AM EDT Emergency [facility] Emergency [address] [place] [address] Dalton Hemphill MD Low serum [...] GEMUSE QTc 476 ms GEMUSE P Wave [place] 22 degrees GEMUSE R [place] 18 degrees GEMUSE T [place] 27 degrees GEMUSE ECG Interpretation Normal sinus [...] LAB CHEMISTRY METHOD 04/01/2025 11:33 PM EDT [facility] Blood Venous blood specimen / Unknown Venipuncture / Unknown 04/01/2025 10:53 PM EDT 04/01/2025 11:14 PM EDT Dalton Hemphill MD LAB BLOOD ORDERABLES Final Result Performing Organization Address City/[facility]/ZIP Co de Phone Number [facility] [address] [place] [address], [place] [phone] * Magnesium (04/01/2025 10:53 PM EDT) Only the most recent of2 resultswithin the time period is included. Pathologist [facility] Magnesium 2.0 1.9 - 2.6 mg/dL LAB CHEMISTRY METHOD 04/01/2025 11:33 PM EDT [facility] Blood Venous blood specimen / Unknown Venipuncture / Unknown 04/01/2025 10:53 PM EDT 04/01/2025 11:14 PM EDT Dalton Hemphill MD LAB BLOOD ORDERABLES Final Result Performing Organization Address [facility] Co de Phone Number [facility] [address] [place] [address], [place] [phone] * (ABNORMAL) CBC auto differential (04/01/2025 5:16 PM EDT) WBC 6.5 4.8 - 10.8 K/[facility] LAB HEMETOLOGY METHOD 04/01/2025 5:44 PM EDT [facility] RBC 4.90 4.50 - 5.50 M/[facility] LAB HEMETOLOGY METHOD 04/01/2025 5:44 PM EDT [facility] Hemoglobin 14.5 13.5 - 17.5 g/dL LAB HEMETOLOGY METHOD 04/01/2025 5:44 PM [facility] Hematocrit 44.2 42.0 - 54.0 % LAB HEMETOLOGY METHOD 04/01/2025 5:44 PM [facility] MCV 91.1 79.0 - 98.0 FL LAB HEMETOLOGY METHOD 04/01/2025 5:44 PM [facility] MCH 29.9 27.0 - 32.0 pcg LAB HEMETOLOGY METHOD 04/01/2025 5:44 PM [facility] MCHC 32.8 32.0 - 37.0 g/dL LAB HEMETOLOGY METHOD 04/01/2025 5:44 PM [facility] RDW 16.1(H) 11.0 - 15.0 % LAB HEMETOLOGY METHOD 04/01/2025 5:44 PM [facility] Platelets 200 130 - 400 K/mcL LAB HEMETOLOGY METHOD 04/01/2025 5:44 PM [facility] MPV 10.8 7.0 - 11.0 FL LAB HEMETOLOGY METHOD 04/01/2025 5:44 PM [facility] NRBC 0.0 <1.0 % LAB HEMETOLOGY METHOD 04/01/2025 5:44 PM [facility] NRBC Absolute 0.00 <0.10 K/mcL LAB HEMETOLOGY METHOD 04/01/2025 5:44 PM [facility] Neutrophils Relative 53.7 % LAB HEMETOLOGY METHOD 04/01/2025 5:44 PM [facility] Lymphocytes Relative 28.7 % LAB HEMETOLOGY METHOD 04/01/2025 5:44 PM [facility] Monocytes Relative 11.5 % LAB HEMETOLOGY METHOD 04/01/2025 5:44 PM [facility] Eosinophils Relative 4.8 % LAB HEMETOLOGY METHOD 04/01/2025 5:44 PM EDT [facility] Basophils Relative 0.5 % LAB HEMETOLOGY METHOD 04/01/2025 5:44 PM EDT [facility] Immature Granulocytes Relative 0.8 % LAB HEMETOLOGY METHOD 04/01/2025 5:44 PM EDT [facility] Neutrophils Absolute 3.51 1.50 - 7.00 K/mcL LAB HEMETOLOGY METHOD 04/01/2025 5:44 PM EDT [facility] Lymphocytes Absolute 1.87 1.00 - 5.00 K/mcL LAB HEMETOLOGY METHOD 04/01/2025 5:44 PM EDT [facility] Monocytes Absolute 0.75 0.20 - 1.00 K/mcL LAB HEMETOLOGY METHOD 04/01/2025 5:44 PM EDT [facility] Eosinophils Absolute 0.31 0.00 - 0.50 K/mcL LAB HEMETOLOGY METHOD 04/01/2025 5:44 PM EDT [facility] Basophils Absolute 0.03 0.00 - 0.20 K/mcL LAB HEMETOLOGY METHOD 04/01/2025 5:44 PM EDT [facility] Immature Granulocytes Absolute 0.05(H) 0.00 - 0.03 K/mcL LAB HEMETOLOGY METHOD 04/01/2025 5:44 PM EDT [facility] Blood Venous blood specimen / Unknown Venipuncture / Unknown 04/01/2025 5:16 PM EDT 04/01/2025 5:40 PM EDT us Dalton Hemphill MD LAB BLOOD ORDERABLES Final Result [facility] [address] [place] [address], * Phosphorus (04/01/2025 5:16 PM EDT) Phosphorus 3.3 2.5 - 4.5 mg/dL LAB CHEMISTRY METHOD 04/01/2025 8:42 PM EDT [facility] Blood Venous blood specimen / Unknown Venipuncture / Unknown 04/01/2025 5:16 PM EDT 04/01/2025 5:40 PM EDT Dalton Hemphill MD LAB BLOOD ORDERABLES Final Result [facility] [address] [place] [address], [place] [phone] * (ABNORMAL) Comprehensive metabolic panel (04/01/2025 5:16 PM EDT) [facility] Sodium 138 133 - 145 mmol/L LAB CHEMISTRY METHOD 04/01/2025 6:17 PM [facility] Potassium 3.2(L) 3.5 - 5.5 mmol/L LAB CHEMISTRY METHOD 04/01/2025 6:17 PM [facility] Chloride 100 96 - 110 mmol/L LAB CHEMISTRY METHOD 04/01/2025 6:17 PM [facility] CO2 31 21 - 32 mmol/L LAB CHEMISTRY METHOD 04/01/2025 6:17 PM [facility] Anion Gap 7 3 - 11 LAB CHEMISTRY METHOD 04/01/2025 6:17 PM [facility] Glucose 108(H) 70 - 100 mg/dL LAB CHEMISTRY METHOD 04/01/2025 6:17 PM [facility] BUN 14 5 - 25 mg/dL LAB CHEMISTRY METHOD 04/01/2025 6:17 PM [facility] Creatinine 1.14 0.70 - 1.30 mg/dL LAB CHEMISTRY METHOD 04/01/2025 6:17 PM [facility] eGFR 74 >=60 mL/min/1. 73m2 LAB CHEMISTRY METHOD 04/01/2025 6:17 PM T [facility] Comment:Calculation based on the Chronic Kidney Disease Epidemiology Collaboration (CKD-EPI) equation refit without adjustment for race. BUN/Creatinine Ratio 12.3 LAB CHEMISTRY METHOD 04/01/2025 6:17 PM T [facility] Calcium 9.4 8.5 - 10.5 mg/dL LAB CHEMISTRY METHOD 04/01/2025 6:17 PM [facility] AST (SGOT) 20 10 - 42 unit/L LAB CHEMISTRY METHOD 04/01/2025 6:17 PM [facility] ALT (SGPT) 33 10 - 60 unit/L LAB CHEMISTRY METHOD 04/01/2025 6:17 PM [facility] Alkaline Phosphatase 100 42 - 121 unit/L LAB CHEMISTRY METHOD 04/01/2025 6:17 PM [facility] Total Protein 7.4 6.0 - 8.0 g/dL LAB CHEMISTRY METHOD 04/01/2025 6:17 PM [facility] Albumin 3.5 3.2 - 5.0 g/dL LAB CHEMISTRY METHOD 04/01/2025 6:17 PM [facility] Total Bilirubin 0.3 0.0 - 1.4 mg/dL LAB CHEMISTRY METHOD 04/01/2025 6:17 PM [facility] Blood Venous blood specimen / Unknown Venipuncture / Unknown 04/01/2025 5:16 PM EDT 04/01/2025 5:40 PM EDT us Dalton Hemphill MD LAB BLOOD ORDERABLES Final Result [facility] [address] [place] [address], [place] [phone] from Last 3 Months Insurance [employer] Care Teams Laborer [employer]arch [employer] Relationship Specialty Start Date End Date Physician, No Pcp PCP - General 04/01/25
== END 2025-06-22 10:36 | disposition home or self-care (01) ==
LOC: HO.HHCX 10:35
PROVIDERS: PCP General Practice; Visit Provider Student in an Organized Health Care Education/Training Program
DX: R63.4 Abnormal weight loss (principal); R53.83 Other fatigue
CPT/HCPCS: 71046

== ENCOUNTER → 2025-06-22 10:39 | Outpatient (BNV) | payer MEDICARE, SELFPAY | PROVIDERS: PCP General Practice; Visit Provider Radiology Diagnostic Radiology | DX: R91.8 Other nonspecific abnormal finding of lung field (principal) | CPT/HCPCS: 71046 ==

== ENCOUNTER 2025-07-20 10:00 | Outpatient (REF) | payer MEDICARE, SELFPAY ==
--- OUTSIDE RECORDS SUMMARY | 2025-07-20 11:52 | XMS_ITS | Clinical Summary ---
Author Organization [facility] Address [address] [place] [address] Phone Care Team Providers Care Fork Lift Technician Name Role Phone Physician, No Pcp Primary Care Provider Unavaila ble Allergies No known active allergies Social History Tobacco Use Types Packs/Day Years [...] on patient's age to complete this topic Insurance [employer] Care Teams Fork Lift Technician Relationship Specialty Start Date End Date Physician, No Pcp PCP - General 04/01/25
[2025-07-20 12:00] LABS: Anion Gap 11 (12-20); Blood Urea Nitrogen 13 mg/dL (9-16); Calcium 9.3 mg/dL (8.4-10.2); Carbon Dioxide 29 mmol/L (22-29); Chloride 105 mmol/L (96-108); Estimated Glomerular Filt Rate > 60; Potassium 3.7 mmol/L (3.3-5.1); Sodium 141 mmol/L (135-145)
[2025-07-31 23:49] LABS: HPV MRNA E6/E7 Rectal NOT DETECTED
== END 2025-07-20 10:01 | disposition home or self-care (01) ==
LOC: HO.HHCL 10:00
PROVIDERS: Family Medicine; General Practice; PCP Student in an Organized Health Care Education/Training Program; Visit Provider Student in an Organized Health Care Education/Training Program
DX: E87.6 Hypokalemia (principal); Z11.51 Encounter for screening for human papillomavirus (HPV)
CPT/HCPCS: 36415; 80048; 87624; 88112

== ENCOUNTER 2025-07-31 09:07 | Outpatient (REF) | payer MEDICARE, SELFPAY ==
--- OUTSIDE RECORDS SUMMARY | 2022-09-21 06:21 | XMS_ITS | Continuity of Care Document ---
Author Organization [facility] Address [address] [place] [address] [address] [place] [phone] Phone Care Team Providers Care Corridor Redevelopment Manager Name Role Phone Adriana Strong MD, FACS, RVT Unavailable Unavailable Advance Directives Directive Yes / No Effective Date File Name No Information Encounters Encounter Description Practice Location Reason(s) For Visit Diagnoses Date Provider Providers Copied on Encounter [facility], [address] [place] [address] [address], [place], [id number], tel:[phone] [facility] No Information [employer]. [address] [place] [address], [address], . tel:[phone] Family History Family Member Type Diagnosis Age At Onset No Information Payers Payer name Insurance type Covered libertarian ID Authoriza tion(s) No Information Social History Type Description Quantity Date Captured Comments Sex Male Smoking Status No Information Chief Complaint And Reason For Visit No Information Reason For Referral Reason For Referral No Information History Of Present Illness Encounter Date Complaint History Of Prese nt Illness No Information Functional Status Date Functional Assessmen t No Information Instructions Date Instruction Additional Infor mation No Information Assessments Type Assessment Date No Information Patient Care Teams Name Effective Dates (start - stop) Status Members No Information
--- OUTSIDE RECORDS SUMMARY | 2025-07-31 09:09 | XMS_ITS | Clinical Summary ---
Author Organization [facility] Address [address] [place] [address] Phone Care Team Providers Care Vertical Punch Operator Name Role Phone Physician, No Pcp Primary [...] complete this topic Insurance [employer] Care Teams Vertical Punch Operator Relationship Specialty Start Date End Date Physician, No Pcp PCP - General 04/01/25
[2025-07-31 10:41] LABS: Hematocrit 42.3 % (42.0-52.0); Hemoglobin 14.2 g/dl (14.0-18.0); Mean Corpuscular HGB Conc 33.6 g/dl (31.0-36.0); Mean Corpuscular Hemoglobin 30.7 pg (27.0-33.0); Mean Corpuscular Volume 91.6 fL (80.0-98.0); NRBC Abs Auto 0.000 X10*3/uL (0.0-0.012); NRBC Pct Auto 0.0 /100WBC (0.0-0.2); Platelet Count 166 X10*3/uL (160-400); Red Blood Count 4.62 X10*6/uL (4.60-5.80); White Blood Count 6.5 X10*3/uL (4.8-10.8)
[2025-07-31 11:56] LABS: Prostate Specific Antigen 0.18 ng/mL (<0.05-4.0)
[2025-08-08 11:19] LABS: Testosterone, Free 12.8 pg/mL (35.0-155.0)
== END 2025-07-31 09:08 | disposition home or self-care (01) ==
LOC: HO.LAB 09:07
PROVIDERS: Visit Provider Nurse Practitioner Family
DX: E29.1 Testicular hypofunction (principal); Z12.5 Encounter for screening for malignant neoplasm of prostate
CPT/HCPCS: 36415; 84153; 84402; 84403; 85027

== ENCOUNTER 2025-08-04 08:56 | Outpatient (REF) | payer MEDICARE, SELFPAY ==
--- NOTE | ~2025-08-04 | CT_ITS ---
CLINICAL HISTORY: ABN CXR, FATIGUE, WEIGHT LOSS Exam: Contrast-enhanced CT chest with multiplanar reformats. Comparison: Chest x-ray 06/22/2025. Findings: Lungs lungs reveal minimal bilateral upper lobe patchy ground-glass opacities and centrilobular opacities (for example, on the right on 8; 31-35 and on the left on 8; 41 -44). There are small scattered calcified nodules or granulomas (for example, 6 mm calcified right upper lobe nodule on 8; 23, 355 Hounsfield units and 9 mm calcified left upper lobe nodule on 8; 29, 449 Hounsfield units), differential consideration could include mild pulmonary alveolar microlithiasis. Faint ground-glass and centrilobular opacities suggest mild nonspecific pneumonitis or perhaps bronchiolitis. Otherwise, no nomi consolidation. No other noncalcified nodules. No significant septal thickening or bronchovascular marking thickening. No bronchiectasis. No subpleural honeycombing. No mediastinal or hilar masses or adenopathy. No pleural or pericardial effusions. Images below the diaphragms reveal no acute abnormalities. Osseous structures reveal no destructive osseous lesions. Impression: 1. Mild/subtle scattered bilateral upper lobe ground-glass and minimal centrilobular opacities, nonspecific although could suggest mild pneumonitis or bronchiolitis. 2. Scattered small pulmonary calcifications could suggest small calcified granulomas although differential consideration could include mild pulmonary alveolar microlithiasis. This document has been electronically signed by: Nadeem Emerson MD on 08/05/2025 13:54:03
--- OUTSIDE RECORDS SUMMARY | 2025-08-04 09:30 | XMS_ITS | Clinical Summary ---
Author Organization [facility] Address [address] [place] [address] Phone Care Team Providers Care Supervisor Hanging And Trimming Name Role Phone Physician, No Pcp Primary [...] Health Screening 04/02/2025 COVID-19 Vaccine (1 - 2024-2 6 season) 2025 Influenza Vaccine (#1) 2025 08/20/2014 [...] complete this topic Insurance [employer] Care Teams Supervisor Hanging And Trimming Relationship Specialty Start Date End Date Physician, No Pcp PCP - General 04/01/25
[2025-08-04] MEDS: iohexoL 350 MG/ML 100 ML INFUS..BTL IV (09:44)
== END 2025-08-04 08:57 | disposition home or self-care (01) ==
LOC: HO.CT 08:56
PROVIDERS: PCP Student in an Organized Health Care Education/Training Program; Visit Provider Student in an Organized Health Care Education/Training Program
DX: R93.89 Abnormal findings on diagnostic imaging of other specified body structures (principal); R63.4 Abnormal weight loss; R53.83 Other fatigue; J94.8 Other specified pleural conditions
CPT/HCPCS: 71260; Q9967

== ENCOUNTER → 2025-08-04 08:59 | Outpatient (BNV) | payer MEDICARE, SELFPAY | PROVIDERS: PCP Student in an Organized Health Care Education/Training Program; Visit Provider Radiology Diagnostic Radiology | DX: R91.8 Other nonspecific abnormal finding of lung field (principal) | CPT/HCPCS: 71260 ==

== ENCOUNTER 2025-08-12 12:32 | Outpatient (AMB) | payer MEDICARE, SELFPAY ==
--- NOTE | 2025-08-12 12:47 | A.OFFVIS_ITS ---
Intake Visit Reasons: 3 MO FOLLOW UP WITH LABS Intake Note: Patient is present for 3M/LABS Urology Medication:TESTOSTERONE Antibiotic Allergy:NONE Blood Thinner:NONE Marine Meteorologist Required: No Allergies No Known Allergies (No Known Allergies*) Allergy (Verified 08/12/25 13:20) Medication List - Last Reconciled 08/12/25 by HARMAN Lacey-MIRANDA [id number] ala 50-200-25 mg (Biktarvy) 1 tab PO DAILY blood pressure test kit-large As directed bumetanide 1 mg PO DAILY chlorhexidine gluconate 0.12% mL PO ibuprofen 800 mg PO TID PRN ipratropium-albuterol 20-100 mcg/actuation (Combivent Respimat) 1 puff inhalation DAILY methadone 110 mg PO DAILY naloxone 4 mg/actuation ea intranasal rosuvastatin 20 mg PO DAILY sildenafil (Viagra) 100 mg PO DAILY PRN 90 days testosterone 2 pumps topical DAILY 30 days umeclidinium-vilanterol 62.5-25 mcg/actuation (Anoro Ellipta) 1 ea inhalation DAILY HPI Comments Details: Julian is a very pleasant 60-year-old male patient of Dr. Yasmany Valiente. He has a past medical history of depression, peripheral edema, COPD, hyperlipidemia, hypertension, hepatitis-C, HIV, and nicotine dependence. In discussion with the patient today reports to be doing and feeling well. Of note, patient underwent left-sided hydrocelectomy with Dr. Jensen 10/17 and has since had no issues or concerns regarding testicular swelling or infection. He reports feeling scrotum is back to normal size. He does continue to experience erectile dysfunction. We did discuss previous labs noting hypogonadism. We did discussed further treatment options of ED as well as hypogonadism and risks and benefits of these treatment options. He would like to attempt testosterone replacement at this time. 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 He does report noting episodes of urinary frequency however relates this to his diuretic. He otherwise denies incontinence, nocturia, hematuria, dysuria, foul smelling urine, changes to urinary stream, flank pain, fever, and or chills. In office urinalysis results reviewed with the patient today. He otherwise offers no other issues or concerns at this time. [facility] Medical History Methadone maintenance therapy patient Colon polyps Depression Peripheral edema COPD (chronic obstructive pulmonary disease) Hyperlipidemia Hypertension, essential Hepatitis C HIV (human immunodeficiency virus infection) Nicotine dependence, cigarettes, uncomplicated Surgical History History of colonoscopy Social History Patient Tobacco Use Status: Current everyday Tobacco user Tobacco use type: Cigarette and Smokeless Tobacco Cigarette Packs Per Day: 1 Cigarettes Per Day: 20 Assessment & Plan Assessment & Plan Orders: Orders AMB Urinalysis Automated Today Z13.9 - Encounter for screening, unspecified Medications: Refilled testosterone apply 2 pumps over max area - alternate shoulders on alternate days 2 pumps topical DAILY 75 grams 3RF 30 days E29.1 - Testicular hypofunction, R79.89 - Other specified abnormal findings of blood chemistry Coding
== END 2025-08-12 13:17 | disposition home or self-care (01) ==
LOC: HO.HUSH 12:33
PROVIDERS: PCP Student in an Organized Health Care Education/Training Program; Visit Provider Nurse Practitioner Family
DX: Z13.9 Encounter for screening, unspecified (principal)

== ENCOUNTER → 2025-08-12 12:32 | Outpatient (BNVA) | payer MEDICARE, SELFPAY | PROVIDERS: PCP Student in an Organized Health Care Education/Training Program; Visit Provider Nurse Practitioner Family | DX: E29.1 Testicular hypofunction (principal); N52.9 Male erectile dysfunction, unspecified | CPT/HCPCS: 81003; 99212 ==